=== PATIENT | female | born 1960 | race Caucasian/White ===

== ENCOUNTER 2018-08-19 10:41 | Inpatient (IN) | payer OTHER ==
--- NOTE | 2018-08-19 11:01 | PDOC ---
ED Treatment Course - LABORATORY CBC & Chemistry Diagram: 08/20/18 06:00 08/20/18 06:42 Medical Decision Making - Medical Decision Making 08/19/18 11:37 58 yo F not followed by a PMD Presenting with epigastric pain Pt seen by Midlevel Provider under my direct supervision Pt interviewed and examined Ancillary studies reviewed EKG: ST rate of 118 bpm, axis nml, intervals nml, no st elevations or depressions LABS: Laboratory Tests 08/19/18 11:30 Sodium 141 Potassium 5.9 H Chloride 108 H Carbon Dioxide 24 Anion Gap 8 BUN 13 Creatinine 0.6 Random Glucose 319 H* Total Bilirubin 1.5 H AST 585 H ALT 394 H Alkaline Phosphatase 144 H Creatine Kinase 58 Troponin I < 0.02 Lipase > 82265 H Acetone, Qual Negative L I agree with plan as outlined by Midlevel Provider *DC/Admit/Observation/Transfer Diagnosis at time of Disposition: Pancreatitis - Discharge Dispostion Condition at time of disposition: Guarded - Referrals - Patient Instructions - Post Discharge Activity
[2018-08-19] MEDS ORDERED: FAMOTIDINE 20 MG/50 ML IVPB 20 MG/50 ML MG IVPB ONE ×2 (11:03→11:43)
[2018-08-19] MEDS ORDERED: ONDANSETRON 4 MG/2 ML VIAL IVPUSH ONE (11:03)
--- NOTE | 2018-08-19 11:09 | PDOC ---
History of Present Illness - General Stated Complaint: WEAKNESS Time Seen by Provider: 08/19/18 10:57 History Source: Patient, Family - History of Present Illness Timing/Duration: reports: other (this am) Past History - Past Medical History Allergies/Adverse Reactions: Allergies Allergy/AdvReac Type Severity Reaction Status Date / Time No Known Allergies Allergy Verified 08/19/18 11:08 Home Medications: Ambulatory Orders NK [No Known Home Medication] 08/19/18 Review of Systems - Review of Systems Constitutional: Yes: Weakness. No: Chills, Fever Respiratory: Yes: Shortness of Breath. No: Cough Cardiac (ROS): No: Chest Pain ABD/GI: Yes: Nausea. No: Blood Streaked Bowels, Constipated, Diarrhea, Rectal Bleeding : No: Dysuria, Flank Pain, Hematuria *Physical Exam - Physical Exam Comments: 08/19/18 11:08 pt appears pale and diaphoretic General Appearance: Yes: Appropriately Dressed, Moderate Distress HEENT: positive: Normal Voice Neck: positive: Supple Respiratory/Chest: positive: Lungs Clear, Normal Breath Sounds. negative: Respiratory Distress Cardiovascular: positive: Regular Rate, S1, S2 Gastrointestinal/Abdominal: positive: Tender (sig ttp to epigastrium, NT to RUQ) , Soft Musculoskeletal: negative: CVA Tenderness Extremity: negative: Pedal Edema Integumentary: positive: Dry, Warm Neurologic: positive: Fully Oriented, Alert, Normal Mood/Affect ED Treatment Course - LABORATORY CBC & Chemistry Diagram: 08/19/18 11:30 08/19/18 11:30 - RADIOLOGY Radiology Studies Ordered: Category Date Time Status CHEST X-RAY PORTABLE* [RAD] Stat Radiology 08/19/18 11:03 Ordered Medical Decision Making - Medical Decision Making 08/19/18 11:04 58-year-old female, denies any past medical history and not taking any medications, but does admit she has not been to the doctor in many years, here with epigastric pain with nausea, vomiting that started this morning. Patient has had similar symptoms in the past, usually after eating spicy food and thinks she might have gastritis but never had to come to the ER for symptoms before. No change in bowel movements, melena, bright red blood per rectum, fever or chills. Reports maybe some shortness of breath but no chest pain. Per EMS, patient was diaphoretic and pale at scene with a blood sugar in the 300s w/ unremarkable EKG. Has since given patient 4 of cris with a liter of fluids running at this time. See exam Gastritis vs ACS, less likely PE or dissection -EKG -CXR -labs -trial of GI cocktail 08/19/18 13:11 LFTs significantly elevated including lipase of >30K!. Denies ETOH use. K of 5.9 w/ nl cr. EKG unremarkable. CBC pending. Concern for possible pancreatitis vs majo/cholangitis. IVF in progress. Pt receiving 2nd liter at this time and currently in US, pending CT as well 15:00 Ultrasound read as fatty liver versus hepatocellular disease. Gallstones seen without evidence of acute majo, borderline dilatation of the common bile duct of 6 mm. Strongly suspect pancreatitis at this time. CT pending. On 3rd liter of IVF now. No indication for abx at this time 08/19/18 18:08 Per radiology, CT demonstrates pancreatic edema with trace peripancreatic fluid consistent with acute pancreatitis. No evidence of pancreatic necrosis. Again , there is borderline CBD dilatation to 0.6-0.7 cm w/ trace pericholecystic fluid. Will c/w roundhouse firer/fireman for possible bed on unit given Lauren's score of 4. Pt most likely need GI consult while in-house. On reassessment, patient reports feeling significantly better, pain controlled at present. Currently NPO. 08/19/18 18:24 Case d/w Dr Escobar who agrees w/ ICU admit. Case d/w roundhouse firer/fireman who states she will discuss w/ attg to decide dispo 08/19/18 19:00 Pt signed out to [facility] at this time *DC/Admit/Observation/Transfer Diagnosis at time of Disposition: Pancreatitis Qualifiers: Chronicity: acute Pancreatitis type: unspecified pancreatitis type Acute pancreatitis complication: unspecified Qualified Code(s): K85.90 - Acute pancreatitis without necrosis or infection, unspecified - Discharge Dispostion Condition at time of disposition: Guarded Decision to Admit order: Yes - Referrals - Patient Instructions - Post Discharge Activity
[2018-08-19 11:10] VITALS: BMI 26.9
[2018-08-19] MEDS ORDERED: ONDANSETRON 4 MG/2 ML VIAL ONE (11:16)
[2018-08-19 11:46] LABS: BASO % 0.1 % (0-2.0); EOS % 0.2 % (0-4.5); HEMATOCRIT 42.6 % (32.4-45.2); MCH 29.3 pg (25.7-33.7); MCHC 32.9 g/dl (32.0-36.0); MEAN CELL VOLUME 89.1 fl (80-96); MONO % 5.6 % (3.8-10.2); NEUT % 86.1 % (42.8-82.8); PLATELET COUNT 266 K/MM3 (134-434); RBC 4.78 M/mm3 (3.60-5.2); RDW 13.2 % (11.6-15.6); WHITE BLOOD COUNT 11.9 K/mm3 (4.0-10.0)
[2018-08-19 11:52] LABS: URINE APPEARANCE CLEAR; URINE BILIRUBIN NEGATIVE (<2.0 mg/dL); URINE COLOR LTYELLOW; URINE GLUCOSE (UA) 3+ (NEGATIVE); URINE KETONE 1+ (NEGATIVE); URINE LEUK ESTERASE NEGATIVE (NEGATIVE); URINE NITRITE NEGATIVE (NEGATIVE); URINE PROTEIN NEGATIVE (NEGATIVE); URINE UROBILINOGEN NEGATIVE mg/dL (0.2-1.0)
[2018-08-19] MEDS ORDERED: SODIUM CHLORIDE 1,000 ML IV STA ×3 (12:08→15:56)
[2018-08-19 12:26] LABS: ALBUMIN 3.4 g/dl (3.4-5.0); ALK PHOS 144 U/L (45-117); ANION GAP 8 MMOL/L (8-16); BILIRUBIN,TOTAL 1.5 mg/dL (0.2-1); BLOOD UREA NITROGEN 13 mg/dL (7-18); CALCIUM 9.4 mg/dL (8.5-10.1); CHLORIDE 108 mmol/L (98-107); CO2 24 mmol/L (21-32); CREATININE 0.6 mg/dL (0.55-1.3); GLUCOSE,RANDOM 319 mg/dL (74-106); LIPASE > 30000 U/L (73-393); POTASSIUM 5.9 mmol/L (3.5-5.1); SGOT/AST 585 U/L (15-37); SGPT/ALT 394 U/L (13-61); SODIUM 141 mmol/L (136-145); TOT PROT 7.5 g/dl (6.4-8.2)
[2018-08-19 12:36] LABS: ACETONE SERUM NEGATIVE (NEGATIVE)
[2018-08-19] MEDS ORDERED: METOCLOPRAMIDE HCL INJECTION 10 MG/2 ML VIAL IVPB ONE (12:59)
[2018-08-19] MEDS ORDERED: METOCLOPRAMIDE HCL INJECTION 10 MG/2 ML VIAL ONE (13:00)
--- NOTE | 2018-08-19 15:16 | EKG ---
Test Reason : Blood Pressure : / mmHG Vent. Rate : 118 BPM Atrial Rate : 119 BPM P-R Int : 000 ms QRS Dur : 080 ms QT Int : 334 ms P-R-T Axes : 000 081 048 degrees QTc Int : 468 ms POOR DATA QUALITY, INTERPRETATION MAY BE ADVERSELY AFFECTED ACCELERATED JUNCTIONAL RHYTHM NONSPECIFIC ST ABNORMALITY ABNORMAL ECG NO PREVIOUS ECGS AVAILABLE Confirmed by STANISLAW SMITH MD ([id number]) on 08/19/2018 3:16:09 PM Referred By: Confirmed By:STANISLAW SMITH MD
[2018-08-19 15:45] LABS: LDH 555 U/L (84-246)
[2018-08-19] MEDS ORDERED: HYDROmorphone HCL CARPU-JECT 2 MG/1 ML DISP.SYRIN IVPB ONE (16:07)
[2018-08-19] MEDS ORDERED: HYDROmorphone HCl 2 MG/ML VIAL ONE (16:53)
[2018-08-19] MEDS ORDERED: HYDROmorphone HCL CARPU-JECT 2 MG/1 ML DISP.SYRIN IVPUSH ONE (16:56)
[2018-08-19] MEDS ORDERED: LACTATED RINGERS SOLUTION 1000 ML INFUS.BAG IV ONE (20:00)
--- NOTE | 2018-08-19 20:03 | PDOC ---
*Physical Exam - Vital Signs Last Vital Signs Temp Pulse Resp BP Pulse Ox 116 H 19 136/87 100 08/19/18 19:01 08/19/18 19:01 08/19/18 19:01 08/19/18 19:31 ED Treatment Course - LABORATORY CBC & Chemistry Diagram: 08/19/18 11:30 08/19/18 11:30 - ADDITIONAL ORDERS Additional order review: Laboratory Results 08/19/18 08/19/18 08/19/18 13:07 11:30 11:30 Sodium 141 Potassium 5.9 H Chloride 108 H Carbon Dioxide 24 Anion Gap 8 BUN 13 Creatinine 0.6 Creat Clearance w eGFR > 60 Random Glucose 319 H* Calcium 9.4 Total Bilirubin 1.5 H AST 585 H ALT 394 H Alkaline Phosphatase 144 H LD Total Cancelled 555 H Creatine Kinase 58 Troponin I < 0.02 Total Protein 7.5 Albumin 3.4 Lipase > 52155 H Urine Color Ltyellow Urine Appearance Clear Urine pH 7.0 Ur Specific [place] 1.013 Urine Protein Negative Urine Glucose (UA) 3+ H Urine Ketones 1+ H Urine Blood Negative Urine Nitrite Negative Urine Bilirubin Negative Urine Urobilinogen Negative Ur Leukocyte Esterase Negative Acetone, Qual Negative L 08/19/18 11:30 RBC 4.78 MCV 89.1 MCHC 32.9 RDW 13.2 MPV 8.0 Neutrophils % 86.1 H Lymphocytes % 8.0 Monocytes % 5.6 Eosinophils % 0.2 Basophils % 0.1 - Medications Given in the ED: ED Medications Discontinued Medications Generic Name Dose Route Start Last Admin Trade Name Freq PRN Reason Stop Dose Admin Hydromorphone HCl 2 mg 08/19/18 16:07 08/19/18 16:59 Dilaudid Injection - IVPB 08/19/18 16:08 Not Given ONCE ONE Hydromorphone HCl 2 mg 08/19/18 16:56 08/19/18 16:58 Dilaudid Injection - IVPUSH 08/19/18 16:57 2 mg ONCE ONE Administration Famotidine/Sodium Chloride 20 mg in 50 mls @ 100 mls/hr 08/19/18 11:03 11:51 Pepcid 20 Mg Premixed Ivpb - IVPB 08/19/18 11:32 100 mls/hr ONCE ONE Administration Sodium Chloride 1,000 mls @ 1,000 mls/hr 08/19/18 12:08 08/19/18 12:21 Normal Saline - IV 08/19/18 13:07 1,000 mls/hr ASDIR STA Administration Sodium Chloride 1,000 mls @ 1,000 mls/hr 08/19/18 13:10 08/19/18 14:38 Normal Saline - IV 08/19/18 14:09 1,000 mls/hr ASDIR STA Administration Sodium Chloride 1,000 mls @ 1,000 mls/hr 08/19/18 15:56 08/19/18 16:05 Normal Saline - IV 08/19/18 16:55 1,000 mls/hr ASDIR STA Administration Metoclopramide HCl 10 mg 08/19/18 12:59 08/19/18 13:05 Reglan Injection - IVPB 08/19/18 13:00 10 mg ONCE ONE Administration Ondansetron HCl 4 mg 08/19/18 11:03 08/19/18 11:51 Zofran Injection IVPUSH 08/19/18 11:04 4 mg ONCE ONE Administration Medical Decision Making - Medical Decision Making 08/19/18 19:58 i spoke to ICU resident Myriam. recommends repeat labs and Lactated ringer IVF. if worsening symptoms/ hemopdynamically unstable. likely need ICU admission. I spoke to Dr. torre. Dr. Escobar is aware of plan. *DC/Admit/Observation/Transfer Diagnosis at time of Disposition: Pancreatitis Qualifiers: Chronicity: acute Pancreatitis type: unspecified pancreatitis type Acute pancreatitis complication: unspecified Qualified Code(s): K85.90 - Acute pancreatitis without necrosis or infection, unspecified - Discharge Dispostion Condition at time of disposition: Guarded Decision to Admit order: Yes - Referrals - Patient Instructions - Post Discharge Activity
--- NOTE | 2018-08-19 20:41 | HP ---
Admitting History and Physical - Primary Care Physician PCP: Zoila Escobar - Admission History of Present Illness: 58-year-old female, denies any past medical history and not taking any medications, but does admit she has not been to the doctor in many years, here with epigastric pain with nausea, vomiting that started this morning. Patient has had similar symptoms in the past, usually after eating spicy food and thinks she might have gastritis but never had to come to the ER for symptoms before. No change in bowel movements, melena, bright red blood per rectum, fever or chills. Reports maybe some shortness of breath but no chest pain. - Smoking History Smoking history: Never smoked Home Medications - Allergies Allergies/Adverse Reactions: Allergies Allergy/AdvReac Type Severity Reaction Status Date / Time No Known Allergies Allergy Verified 08/19/18 11:08 - Home Medications Home Medications: Ambulatory Orders NK [No Known Home Medication] 08/19/18 Physical Examination Vital Signs: Vital Signs Temperature Pulse Rate 116 H 08/19/18 19:01 Respiratory Rate 19 08/19/18 19:01 Blood Pressure 136/87 08/19/18 19:01 O2 Sat by Pulse Oximetry (%) 100 08/19/18 19:31 Constitutional: Yes: No Distress HENT: Yes: Atraumatic Neck: Yes: Supple Cardiovascular: Yes: Regular Rate and Rhythm Respiratory: Yes: CTA Bilaterally Gastrointestinal: Yes: Normal Bowel Sounds Extremities: Yes: WNL Edema: No Neurological: Yes: Alert, Oriented Labs: CBC, BMP 08/19/18 11:30 08/19/18 11:30 Problem List - Problems (1) Pancreatitis Assessment/Plan: npo, ivf,prn pain meds gi consult Code(s): K85.90 - ACUTE PANCREATITIS WITHOUT NECROSIS OR INFECTION, UNSP Qualifiers: Chronicity: acute Pancreatitis type: unspecified pancreatitis type Acute pancreatitis complication: unspecified Qualified Code(s): K85.90 - Acute pancreatitis without necrosis or infection, unspecified Assessment/Plan Laboratory Tests 08/19/18 08/19/18 08/19/18 11:30 11:30 11:30 WBC 11.9 H RBC 4.78 Hgb 14.0 Hct 42.6 MCV 89.1 MCH 29.3 MCHC 32.9 RDW 13.2 Plt Count 266 MPV 8.0 Absolute Neuts (auto) 10.3 H Neutrophils % 86.1 H Lymphocytes % 8.0 Monocytes % 5.6 Eosinophils % 0.2 Basophils % 0.1 Nucleated RBC % 0 Sodium 141 Potassium 5.9 H Chloride 108 H Carbon Dioxide 24 Anion Gap 8 BUN 13 Creatinine 0.6 Creat Clearance w eGFR > 60 Random Glucose 319 H* Calcium 9.4 Total Bilirubin 1.5 H AST 585 H ALT 394 H Alkaline Phosphatase 144 H LD Total 555 H Creatine Kinase 58 Troponin I < 0.02 Total Protein 7.5 Albumin 3.4 Lipase > 16070 H Urine Color Ltyellow Urine Appearance Clear Urine pH 7.0 Ur Specific [place] 1.013 Urine Protein Negative Urine Glucose (UA) 3+ H Urine Ketones 1+ H Urine Blood Negative Urine Nitrite Negative Urine Bilirubin Negative Urine Urobilinogen Negative Ur Leukocyte Esterase Negative Acetone, Qual Negative L 08/19/18 13:07 WBC RBC Hgb Hct MCV MCH MCHC RDW Plt Count MPV Absolute Neuts (auto) Neutrophils % Lymphocytes % Monocytes % Eosinophils % Basophils % Nucleated RBC % Sodium Potassium Chloride Carbon Dioxide Anion Gap BUN Creatinine Creat Clearance w eGFR Random Glucose Calcium Total Bilirubin AST ALT Alkaline Phosphatase LD Total Cancelled Creatine Kinase Troponin I Total Protein Albumin Lipase Urine Color Urine Appearance Urine pH Ur Specific [place] Urine Protein Urine Glucose (UA) Urine Ketones Urine Blood Urine Nitrite Urine Bilirubin Urine Urobilinogen Ur Leukocyte Esterase Acetone, Qual Active Medications Generic Name Dose Route Start Last Admin Trade Name Freq PRN Reason Stop Dose Admin Sodium Chloride 1,000 mls @ 100 mls/hr 08/19/18 20:45 Normal Saline - IV ASDIR BENSON Morphine Sulfate 2 mg 08/19/18 20:45 Morphine Sulfate IVPUSH Q4H PRN PAIN LEVEL 4 - 6
[2018-08-19] MEDS ORDERED: morphine SULFATE 4 MG/ML VIAL IVPUSH PRN (20:45)
[2018-08-19] MEDS: SODIUM CHLORIDE 1,000 ML IV SCH (20:49)
--- NOTE | 2018-08-19 21:26 | CONSULT ---
Consultation: REQUESTING PROVIDER: CONSULT REQUEST: We have been asked to medically evaluate this patient for ( specify). HISTORY OF PRESENT ILLNESS: This is a 58 yo F with no known PMH, who is not followed by a PMD, who presentsed with epigastric pain, found to have acute pancreatis. She denies prior episodes of pancreatitis but does report occasional epigastric burnign after heavy or spicy meals. She denies alcohol consumption or smoking. She denies sob, cough, dizziness, cp, n/v, diarrhea, dysuria. She received 3 L NS and dilaudid and currently feels better, denies abd pain. REVIEW OF SYSTEMS: CONSTITUTIONAL: Absent: fever, chills, malaise, weight change HEENT: Absent: rhinorrhea, nasal congestion CARDIOVASCULAR: Absent: chest pain, syncope, palpitations, lightheadedness, peripheral edema RESPIRATORY: Absent: cough, shortness of breath, dyspnea with exertion, orthopnea, wheezing, stridor, hemoptysis GASTROINTESTINAL: Absent: abdominal pain, abdominal distension, nausea, vomiting, diarrhea, constipation, melena, hematochezia GENITOURINARY: Absent: dysuria MUSCULOSKELETAL: Absent: back pain, neck pain SKIN: Absent: rash, itching, pallor HEMATOLOGIC/IMMUNOLOGIC: Absent: easy bleeding, easy bruising ENDOCRINE: Absent: unexplained weight gain, unexplained weight loss NEUROLOGIC: Absent: headache, focal weakness or paresthesias PSYCHIATRIC: Absent: anxiety, depression PHYSICAL EXAMINATION Vital Signs - 24 hr 08/19/18 08/19/18 08/19/18 11:03 17:03 19:01 Temperature Pulse Rate 92 H Pulse Rate [ 115 H 116 H Right] Respiratory 18 17 19 Rate Blood Pressure 175/94 H Blood Pressure 159/85 136/87 [Right] O2 Sat by Pulse 100 98 99 Oximetry (%) 08/19/18 08/19/18 19:05 19:31 Temperature 98.6 F Pulse Rate Pulse Rate [ 98 H Right] Respiratory 18 Rate Blood Pressure Blood Pressure 143/92 [Right] O2 Sat by Pulse 98 100 Oximetry (%) GENERAL: Awake, alert, and fully oriented, in no acute distress. HEAD: Normal with no signs of trauma. EYES: Pupils equal, round and reactive to light, extraocular movements intact, sclera anicteric, conjunctiva clear. No lid lag. EARS, NOSE, THROAT: Moist mucous membranes. NECK: supple without JVD LUNGS: Breath sounds equal, clear to auscultation bilaterally. No wheezes, and no crackles. No accessory muscle use. HEART: Regular rate and rhythm, normal S1 and S2 ABDOMEN: Soft, mildly tender epigastric region, not distended, normoactive bowel sounds, no guarding, no rebound, no masses. MUSCULOSKELETAL: No CVA tenderness. UPPER EXTREMITIES: 2+ pulses, warm, well-perfused. No cyanosis. No clubbing. Cap refill <2 seconds. No peripheral edema. LOWER EXTREMITIES: 2+ pulses, warm, well-perfused. No calf tenderness. No peripheral edema. NEUROLOGICAL: Cranial nerves II-XII grossly intact. Normal speech. PSYCHIATRIC: Cooperative. Good eye contact. Appropriate mood and affect. SKIN: Warm, dry, normal turgor Laboratory Results - last 24 hr 08/19/18 08/19/18 08/19/18 11:30 11:30 11:30 WBC 11.9 H RBC 4.78 Hgb 14.0 Hct 42.6 MCV 89.1 MCH 29.3 MCHC 32.9 RDW 13.2 Plt Count 266 MPV 8.0 Absolute Neuts (auto) 10.3 H Neutrophils % 86.1 H Lymphocytes % 8.0 Monocytes % 5.6 Eosinophils % 0.2 Basophils % 0.1 Nucleated RBC % 0 Sodium 141 Potassium 5.9 H Chloride 108 H Carbon Dioxide 24 Anion Gap 8 BUN 13 Creatinine 0.6 Creat Clearance w eGFR > 60 Random Glucose 319 H* Calcium 9.4 Total Bilirubin 1.5 H AST 585 H ALT 394 H Alkaline Phosphatase 144 H LD Total 555 H Creatine Kinase 58 Troponin I < 0.02 Total Protein 7.5 Albumin 3.4 Lipase > 07328 H Urine Color Ltyellow Urine Appearance Clear Urine pH 7.0 Ur Specific [place] 1.013 Urine Protein Negative Urine Glucose (UA) 3+ H Urine Ketones 1+ H Urine Blood Negative Urine Nitrite Negative Urine Bilirubin Negative Urine Urobilinogen Negative Ur Leukocyte Esterase Negative Acetone, Qual Negative L 08/19/18 13:07 WBC RBC Hgb Hct MCV MCH MCHC RDW Plt Count MPV Absolute Neuts (auto) Neutrophils % Lymphocytes % Monocytes % Eosinophils % Basophils % Nucleated RBC % Sodium Potassium Chloride Carbon Dioxide Anion Gap BUN Creatinine Creat Clearance w eGFR Random Glucose Calcium Total Bilirubin AST ALT Alkaline Phosphatase LD Total Cancelled Creatine Kinase Troponin I Total Protein Albumin Lipase Urine Color Urine Appearance Urine pH Ur Specific [place] Urine Protein Urine Glucose (UA) Urine Ketones Urine Blood Urine Nitrite Urine Bilirubin Urine Urobilinogen Ur Leukocyte Esterase Acetone, Qual Active Medications Generic Name Dose Route Start Last Admin Trade Name Nicholas PRN Reason Stop Dose Admin Sodium Chloride 1,000 mls @ 100 mls/hr 08/19/18 20:45 08/19/18 20:49 Normal Saline - IV 100 mls/hr ASDIR BENSON Administration Morphine Sulfate 2 mg 08/19/18 20:45 Morphine Sulfate IVPUSH Q4H PRN PAIN LEVEL 4 - 6 ASSESSMENT/PLAN: This is a 58 yo F with no known PMH, who is not followed by a PMD, who presentsed with epigastric pain, found to have acute pancreatis. Acute mild pancreatitis, likley gall stone induced Transaminitis, hyperglycemia, pancreatitis related Clolelithiasis w/o coholecystitis -Lauren =4, howeve,r Darrius score for organ damage is 0, there is no necrosis on imaging, no hypotension, tachypnea, tachycardia or any other criteria that meets ICU admission. -patient received 3 L NS, should continue fluid resuscitation but with LR since it has clear mortality benefit over NS -NPO -abd imaging appreciated: mildly dilated CBD; needs GI eval for MRCP and surgery eval for cholecystectomy during this admission -f/u repeat cmp, triglycerides, lactic acid. -monitor vital signs q4h, continuous pulse ox, cardiac monitoring. -patient requested A1c in the morning. Dispo: does not meed ICU criteria, can be monitored in telemetry. Please contact ICU if condition worsens and warrants reevaluation Problem List - Problems (1) Acute pancreatitis due to calculus of common bile duct Code(s): K85.10 - BILIARY ACUTE PANCREATITIS WITHOUT NECROSIS OR INFECTION (2) Cholelithiasis Code(s): K80.20 - CALCULUS OF GALLBLADDER W/O CHOLECYSTITIS W/O OBSTRUCTION (3) Pancreatitis Code(s): K85.90 - ACUTE PANCREATITIS WITHOUT NECROSIS OR INFECTION, UNSP Qualifiers: Chronicity: acute Pancreatitis type: unspecified pancreatitis type Acute pancreatitis complication: unspecified Qualified Code(s): K85.90 - Acute pancreatitis without necrosis or infection, unspecified Visit type - Emergency Visit Emergency Visit: Yes ED Registration Date: 08/19/18 Care time: The patient presented to the Emergency Department on the above date and was hospitalized for further evaluation of their emergent condition. - New Patient This patient is new to me today: Yes Date on this admission: 08/19/18 - Critical Care Critical Care patient: No
[2018-08-20 01:39] LABS: BASO % 0.4 % (0-2.0); EOS % 0.5 % (0-4.5); LYMPH % 19.3 % (8-40); MCH 29.7 pg (25.7-33.7); MCHC 33.3 g/dl (32.0-36.0); MEAN CELL VOLUME 89.2 fl (80-96); MEAN PLT VOLUME 8.1 fl (7.5-11.1); MONO % 5.8 % (3.8-10.2); PLATELET COUNT 228 K/MM3 (134-434); RBC 4.37 M/mm3 (3.60-5.2); RDW 13.4 % (11.6-15.6); WHITE BLOOD COUNT 7.7 K/mm3 (4.0-10.0)
[2018-08-20 02:06] LABS: ALBUMIN 3.1 g/dl (3.4-5.0); ALK PHOS 126 U/L (45-117); ANION GAP 7 MMOL/L (8-16); BILIRUBIN,TOTAL 0.4 mg/dL (0.2-1); BLOOD UREA NITROGEN 9 mg/dL (7-18); CALCIUM 8.1 mg/dL (8.5-10.1); CHLORIDE 106 mmol/L (98-107); CO2 27 mmol/L (21-32); CREATININE 0.5 mg/dL (0.55-1.3); GLUCOSE,RANDOM 169 mg/dL (74-106); POTASSIUM 3.8 mmol/L (3.5-5.1); SGOT/AST 222 U/L (15-37); SGPT/ALT 293 U/L (13-61); SODIUM 139 mmol/L (136-145); TOT PROT 6.9 g/dl (6.4-8.2)
[2018-08-20] MEDS ORDERED: MORPHINE SULFATE 2 MG/ML VIAL ONE (04:15)
[2018-08-20 07:11] LABS: BASO % 0.3 % (0-2.0); EOS % 0.6 % (0-4.5); HEMATOCRIT 35.2 % (32.4-45.2); HEMOGLOBIN 11.5 GM/dL (10.7-15.3); LYMPH % 17.4 % (8-40); MCHC 32.7 g/dl (32.0-36.0); MEAN CELL VOLUME 88.8 fl (80-96); MEAN PLT VOLUME 7.9 fl (7.5-11.1); MONO % 5.5 % (3.8-10.2); NEUT % 76.2 % (42.8-82.8); PLATELET COUNT 228 K/MM3 (134-434); RBC 3.96 M/mm3 (3.60-5.2); WHITE BLOOD COUNT 7.9 K/mm3 (4.0-10.0)
[2018-08-20 08:18] LABS: ALBUMIN 2.6 g/dl (3.4-5.0); ALK PHOS 103 U/L (45-117); ANION GAP 8 MMOL/L (8-16); BILIRUBIN,TOTAL 0.4 mg/dL (0.2-1); BLOOD UREA NITROGEN 8 mg/dL (7-18); CALCIUM 7.6 mg/dL (8.5-10.1); CHLORIDE 107 mmol/L (98-107); CO2 25 mmol/L (21-32); CREATININE 0.4 mg/dL (0.55-1.3); GLUCOSE,RANDOM 162 mg/dL (74-106); POTASSIUM 3.7 mmol/L (3.5-5.1); SGOT/AST 133 U/L (15-37); SGPT/ALT 213 U/L (13-61); SODIUM 140 mmol/L (136-145); TOT PROT 5.8 g/dl (6.4-8.2)
[2018-08-20] MEDS ORDERED: morphine SULFATE 4 MG/ML VIAL ONE (14:04)
[2018-08-20] MEDS: MORPHINE SULFATE 2 MG/ML VIAL IVPUSH PRN (14:09)
--- NOTE | 2018-08-20 17:21 | PN ---
Progress Note, Physician History of Present Illness: feeling better - Current Medication List Current Medications: Active Medications Sodium Chloride (Normal Saline -) 1,000 mls @ 100 mls/hr IV ASDIR BENSON Last Admin: 08/19/18 20:49 Dose: 100 mls/hr Morphine Sulfate (Morphine Sulfate) 2 mg IVPUSH Q4H PRN PRN Reason: PAIN LEVEL 4 - 6 Last Admin: 08/20/18 14:09 Dose: 2 mg - Objective Vital Signs: Vital Signs Temperature 98.2 F 08/20/18 13:59 Pulse Rate 102 H 08/20/18 08:38 Respiratory Rate 104 H 08/20/18 13:59 Blood Pressure 140/79 08/20/18 13:59 O2 Sat by Pulse Oximetry (%) 94 L 08/20/18 13:59 Constitutional: Yes: No Distress HENT: Yes: Atraumatic Neck: Yes: Supple Cardiovascular: Yes: Regular Rate and Rhythm Respiratory: Yes: CTA Bilaterally Gastrointestinal: Yes: Normal Bowel Sounds, Tenderness, Epigastrium Extremities: Yes: WNL Edema: No Peripheral Pulses WNL: Yes Neurological: Yes: Alert, Oriented Labs: CBC, BMP 08/20/18 06:00 08/20/18 06:42 Problem List - Problems (1) Pancreatitis Assessment/Plan: npo, ivf,prn pain meds gi consult Code(s): K85.90 - ACUTE PANCREATITIS WITHOUT NECROSIS OR INFECTION, UNSP Qualifiers: Chronicity: acute Pancreatitis type: unspecified pancreatitis type Acute pancreatitis complication: unspecified Qualified Code(s): K85.90 - Acute pancreatitis without necrosis or infection, unspecified (2) Acute pancreatitis due to calculus of common bile duct Code(s): K85.10 - BILIARY ACUTE PANCREATITIS WITHOUT NECROSIS OR INFECTION (3) Cholelithiasis Code(s): K80.20 - CALCULUS OF GALLBLADDER W/O CHOLECYSTITIS W/O OBSTRUCTION (4) Gallstone pancreatitis Code(s): K85.10 - BILIARY ACUTE PANCREATITIS WITHOUT NECROSIS OR INFECTION
[2018-08-20] MEDS ORDERED: FLU VACCINE QUAD 60 MCG/0.5 ML (MDV 18-19) IM ONE (18:00)
[2018-08-20] MEDS: SODIUM CHLORIDE 1,000 ML IV SCH (21:48)
[2018-08-21] MEDS: SODIUM CHLORIDE 1,000 ML IV SCH ×3 (02:00→20:59)
[2018-08-21] MEDS: MORPHINE SULFATE 2 MG/ML VIAL IVPUSH PRN ×2 (05:54→12:31)
[2018-08-21 07:16] LABS: ALBUMIN 2.5 g/dl (3.4-5.0); ALK PHOS 94 U/L (45-117); AMYLASE 259 U/L (25-115); ANION GAP 11 MMOL/L (8-16); BILIRUBIN,TOTAL 0.5 mg/dL (0.2-1); BLOOD UREA NITROGEN 6 mg/dL (7-18); CHLORIDE 108 mmol/L (98-107); CO2 20 mmol/L (21-32); CREATININE 0.2 mg/dL (0.55-1.3); GLUCOSE,RANDOM 88 mg/dL (74-106); LIPASE 1497 U/L (73-393); POTASSIUM 3.5 mmol/L (3.5-5.1); SGOT/AST 50 U/L (15-37); SGPT/ALT 132 U/L (13-61); SODIUM 140 mmol/L (136-145); TOT PROT 5.6 g/dl (6.4-8.2)
--- NOTE | 2018-08-21 09:51 | CON.GI ---
Consult Consult Specialty:: GI: Dr. Spencer for Dr. Garcia Referred by:: Dr. Escobar Reason for Consultation:: Pancreatitis - History of Present Illness Chief Complaint: abdominal pain History of Present Illness: 58F admitted 08/19 for evaluation of abdominal pain. That morning she was awoken by severe upper abdominal pain prompting her evaluation. The evening before she had eaten pepperjack cheese. She denies similar episodes in the past. In the ER she was noted to be tachycardic and hypertensive with WBC 11.9 , Lipase 30,000 with 4 positive moreno's criteria on admission. Abdominal US revealed cholelithiasis with 6-7mm CBD. CT scan revealed a non specific 1.4cm focus in the liver and changes consistent with acute non-necrotizing pancreatitis. IOt is unclear if she received fluid boluses in the ED and she has been maintained on 100CC normal saline. Pain improved but persists. She has never had an upper endoscopy or colonoscopy. 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 Place of : [facility] History of Recent Travel: No Home Medications - Allergies Allergies/Adverse Reactions: Allergies Allergy/AdvReac Type Severity Reaction Status Date / Time No Known Allergies Allergy Verified 08/19/18 11:08 - Home Medications Home Medications: Ambulatory Orders NK [No Known Home Medication] 08/19/18 Family Disease History - Family Disease History Family Disease History: Other: Grandparent (Paternal GF w/ colon cancer), Father (Alive: DM/HTN/Dementia), Mother (: 71: [place]), Brother (1, healthy), Sister (2, healthy), Daughter (2, 1 w/ DM II) Review of Systems - Review of Systems Constitutional: denies: Chills, Fever, Unintentional Wgt. Loss Cardiovascular: denies: Chest Pain Respiratory: denies: SOB Gastrointestinal: reports: Abdominal Pain, Nausea Physical Exam-GI Vital Signs: Vital Signs Temperature 98.6 F 08/21/18 06:00 Pulse Rate 112 H 08/21/18 06:00 Respiratory Rate 18 08/21/18 06:00 Blood Pressure 138/77 08/21/18 06:00 O2 Sat by Pulse Oximetry (%) 98 08/20/18 21:00 Constitutional: Yes: Calm Eyes: No: Sclera Icterus Cardiovascular: Yes: Regular Rate and Rhythm. No: Murmur Gastrointestinal Inspection: No: Distention ...Auscultate: Yes: Normoactive Bowel Sounds ...Palpate: Yes: Tenderness (Moderate TTP in mid abdomen) ...Percussion: No: Tympanitic Edema: No (No LE edema) Neurological: Yes: Alert, Oriented Labs: CBC, BMP 08/20/18 06:00 08/21/18 05:30 Hepatic Panel Total Bilirubin 0.5 mg/dL (0.2-1) 08/21/18 05:30 AST 50 U/L (15-37) H 08/21/18 05:30 ALT 132 U/L (13-61) H 08/21/18 05:30 Alkaline Phosphatase 94 U/L (45-117) 08/21/18 05:30 Albumin 2.5 g/dl (3.4-5.0) L 08/21/18 05:30 Imaging - Results Cat Scan: Report Reviewed, Image Reviewed Ultrasound: Report Reviewed Problem List - Problems (1) Gallstone pancreatitis Assessment/Plan: Clinically improved by patient's description, however still with moderate tenderness to palpation on exam. LFT's improving as well, suggesting passage of CBD stone: Advised: Increasing Normal saline to 200cc per hour for 2 liters followed by 150cc/hr NPO Ordered MRCP to further evaluate biliary tract Surgical consult placed as Ms. Amaya should be evaluated for cholecystectomy prior to discharge AM labs ordered, Monitor CBC/CMP daily Code(s): K85.10 - BILIARY ACUTE PANCREATITIS WITHOUT NECROSIS OR INFECTION
[2018-08-21] MEDS ORDERED: SODIUM CHLORIDE 1,000 ML IV SCH (10:00)
[2018-08-21 10:25] LABS: BASO % 0.4 % (0-2.0); EOS % 0.9 % (0-4.5); HEMATOCRIT 35.3 % (32.4-45.2); HEMOGLOBIN 11.5 GM/dL (10.7-15.3); LYMPH % 11.7 % (8-40); MCH 29.1 pg (25.7-33.7); MCHC 32.7 g/dl (32.0-36.0); MEAN PLT VOLUME 8.1 fl (7.5-11.1); MONO % 5.4 % (3.8-10.2); NEUT % 81.6 % (42.8-82.8); PLATELET COUNT 230 K/MM3 (134-434); RBC 3.97 M/mm3 (3.60-5.2); RDW 13.2 % (11.6-15.6); WHITE BLOOD COUNT 8.8 K/mm3 (4.0-10.0)
[2018-08-21 12:04] LABS: ALBUMIN 2.9 g/dl (3.4-5.0); ALK PHOS 113 U/L (45-117); ANION GAP 12 MMOL/L (8-16); BILIRUBIN,TOTAL 0.6 mg/dL (0.2-1); BLOOD UREA NITROGEN 6 mg/dL (7-18); CALCIUM 8.5 mg/dL (8.5-10.1); CHLORIDE 106 mmol/L (98-107); CO2 21 mmol/L (21-32); CREATININE 0.3 mg/dL (0.55-1.3); GLUCOSE,RANDOM 81 mg/dL (74-106); POTASSIUM 3.9 mmol/L (3.5-5.1); SGOT/AST 51 U/L (15-37); SGPT/ALT 140 U/L (13-61); SODIUM 139 mmol/L (136-145); TOT PROT 6.7 g/dl (6.4-8.2)
--- NOTE | 2018-08-21 13:09 | CONSULT ---
- Consultation REQUESTING PROVIDER: Sven CONSULT REQUEST: We have been asked to surgically evaluate this patient for abdominal pain PCP:Zoila Escobar HISTORY OF PRESENT ILLNESS: 58 y/o female presents w/ n/v/abdominal pain and w/ u reveals gallstone pancreatitis; patient had # days of increasing epigastric/ RUQ pain after eating cheese; she may have had this in the past h/e there was no w/u; she has no other GI//[employer] c/o; she came to the ER for evaluation. PMHx: ?HTN? PSHx: none Home Medications Medication Instructions Recorded NK [No Known Home Medication] 08/19/18 Allergies Allergy/AdvReac Type Severity Reaction Status Date / Time No Known Allergies Allergy Verified 08/19/18 11:08 PHYSICAL EXAM: GENERAL: Awake, alert, and fully oriented, in no acute distress. HEAD: Normal with no signs of trauma. EYES:sclera anicteric, conjunctiva clear. NECK: Normal ROM, supple without lymphadenopathy, JVD, or masses. ABDOMEN: Soft, nontender in epigastrium and RUQ, not distended, normoactive bowel sounds, no guarding, no rebound, no masses. No organomegaly. No hernias MUSCULOSKELETAL: Normal ROM at all joints. No bony deformities or tenderness. No CVA tenderness. UPPER EXTREMITIES: 2+ pulses, warm, well-perfused. No cyanosis. Cap refill <2 seconds. No peripheral edema. LOWER EXTREMITIES: 2+ pulses, warm, well-perfused. No calf tenderness. No peripheral edema. NEUROLOGICAL: Normal speech, gait not observed. PSYCH: Cooperative. Good eye contact. Appropriate mood and affect. SKIN: Warm, dry, normal turgor, no rashes or lesions noted. Vital Signs Temperature 98.8 F 08/21/18 10:47 Pulse Rate 115 H 08/21/18 10:47 Respiratory Rate 20 08/21/18 10:47 Blood Pressure 150/83 08/21/18 10:47 O2 Sat by Pulse Oximetry (%) 98 08/21/18 09:00 Lab Results WBC 8.8 K/mm3 (4.0-10.0) 08/21/18 08:10 RBC 3.97 M/mm3 (3.60-5.2) 08/21/18 08:10 Hgb 11.5 GM/dL (10.7-15.3) 08/21/18 08:10 Hct 35.3 % (32.4-45.2) 08/21/18 08:10 MCV 89.0 fl (80-96) 08/21/18 08:10 MCHC 32.7 g/dl (32.0-36.0) 08/21/18 08:10 RDW 13.2 % (11.6-15.6) 08/21/18 08:10 Plt Count 230 K/MM3 (134-434) 08/21/18 08:10 Sodium 139 mmol/L (136-145) 08/21/18 11:00 Potassium 3.9 mmol/L (3.5-5.1) 08/21/18 11:00 Chloride 106 mmol/L (98-107) 08/21/18 11:00 Carbon Dioxide 21 mmol/L (21-32) 08/21/18 11:00 Anion Gap 12 MMOL/L (8-16) 08/21/18 11:00 BUN 6 mg/dL (7-18) L 08/21/18 11:00 Creatinine 0.3 mg/dL (0.55-1.3) L 08/21/18 11:00 Random Glucose 81 mg/dL (74-106) 08/21/18 11:00 Calcium 8.5 mg/dL (8.5-10.1) 08/21/18 11:00 w/u to date reviewed IMP: resolving gallstone pancreatitis PLAN: Check MRCP results; continue present tx.; trend LFT's and amylase and lipase; continue IVF; clear liquid diet as tolerated; for lap majo possible open 08/24/18; d/w the patient and her daughter Lorna; r/b/t/a's d/w them. Deo Lopez MD FACS
--- NOTE | 2018-08-21 15:57 | PN ---
Progress Note, Physician History of Present Illness: feeling better - Current Medication List Current Medications: Active Medications Sodium Chloride (Normal Saline -) 1,000 mls @ 200 mls/hr IV ASDIR BENSON Stop: 08/22/18 14:59 Last Admin: 08/21/18 12:30 Dose: 200 mls/hr Sodium Chloride (Normal Saline -) 1,000 mls @ 150 mls/hr IV ASDIR BENSON Morphine Sulfate (Morphine Sulfate) 2 mg IVPUSH Q4H PRN PRN Reason: PAIN LEVEL 4 - 6 Last Admin: 08/21/18 12:31 Dose: 2 mg - Objective Vital Signs: Vital Signs Temperature 98.9 F 08/21/18 14:00 Pulse Rate 106 H 08/21/18 14:00 Respiratory Rate 20 08/21/18 14:00 Blood Pressure 154/80 08/21/18 14:00 O2 Sat by Pulse Oximetry (%) 98 08/21/18 09:00 Constitutional: Yes: No Distress Eyes: Yes: Conjunctiva Clear HENT: Yes: Atraumatic Neck: Yes: Supple Cardiovascular: Yes: Regular Rate and Rhythm Respiratory: Yes: CTA Bilaterally Gastrointestinal: Yes: Normal Bowel Sounds, Tenderness, Epigastrium Extremities: Yes: WNL Edema: No Neurological: Yes: Alert, Oriented Labs: CBC, BMP 08/21/18 08:10 08/21/18 11:00 Problem List - Problems (1) Pancreatitis Assessment/Plan: npo, ivf,prn pain meds gi consult...reviewed Code(s): K85.90 - ACUTE PANCREATITIS WITHOUT NECROSIS OR INFECTION, UNSP Qualifiers: Chronicity: acute Pancreatitis type: unspecified pancreatitis type Acute pancreatitis complication: unspecified Qualified Code(s): K85.90 - Acute pancreatitis without necrosis or infection, unspecified (2) Acute pancreatitis due to calculus of common bile duct Assessment/Plan: surgery consult reviewed Code(s): K85.10 - BILIARY ACUTE PANCREATITIS WITHOUT NECROSIS OR INFECTION (3) Cholelithiasis Code(s): K80.20 - CALCULUS OF GALLBLADDER W/O CHOLECYSTITIS W/O OBSTRUCTION (4) Gallstone pancreatitis Code(s): K85.10 - BILIARY ACUTE PANCREATITIS WITHOUT NECROSIS OR INFECTION
[2018-08-21] MEDS ORDERED: morphine SULFATE 4 MG/ML VIAL IVPUSH PRN (22:06)
[2018-08-21] MEDS: ONDANSETRON 4 MG/2 ML VIAL IVPUSH PRN (22:29)
[2018-08-22] MEDS: SODIUM CHLORIDE 1,000 ML IV SCH ×3 (02:05→17:10)
[2018-08-22] MEDS: ONDANSETRON 4 MG/2 ML VIAL IVPUSH PRN (06:17)
--- NOTE | 2018-08-22 08:27 | PN ---
Progress Note, Physician Chief Complaint: Covering for Dr. Lemos Pt with abdominal pain - Current Medication List Current Medications: Active Medications Sodium Chloride (Normal Saline -) 1,000 mls @ 200 mls/hr IV ASDIR BENSON Stop: 08/22/18 14:59 Last Admin: 08/21/18 20:59 Dose: 200 mls/hr Sodium Chloride (Normal Saline -) 1,000 mls @ 150 mls/hr IV ASDIR BENSON Last Admin: 08/22/18 02:05 Dose: 150 mls/hr Morphine Sulfate (Morphine Sulfate) 2 mg IVPUSH Q4H PRN PRN Reason: PAIN LEVEL 4 - 6 Last Admin: 08/21/18 12:31 Dose: 2 mg Morphine Sulfate (Morphine Sulfate) 3 mg IVPUSH Q4H PRN PRN Reason: PAIN LEVEL 6-10 Ondansetron HCl (Zofran Injection) 4 mg IVPUSH Q4H PRN PRN Reason: NAUSEA AND/OR VOMITING Last Admin: 08/22/18 06:17 Dose: 4 mg - Objective Vital Signs: Vital Signs Temperature 98.2 F 08/22/18 06:00 Pulse Rate 103 H 08/22/18 06:00 Respiratory Rate 17 08/22/18 06:00 Blood Pressure 155/90 08/22/18 06:00 O2 Sat by Pulse Oximetry (%) 98 08/21/18 21:00 Constitutional: Yes: Well Nourished, No Distress Eyes: Yes: WNL HENT: Yes: WNL Neck: Yes: WNL Cardiovascular: Yes: WNL, Regular Rate and Rhythm Respiratory: Yes: WNL, Regular, CTA Bilaterally Gastrointestinal: Yes: WNL (tender to deep palpation in the epigastrium - no rebound or guarding), Normal Bowel Sounds Musculoskeletal: Yes: WNL Extremities: Yes: WNL Labs: CBC, BMP 08/21/18 08:10 Problem List - Problems (1) Gallstone pancreatitis Assessment/Plan: MRCP reviewed -- cholelithiasis / pancreatitis / acute cholecystitis REC: - clear liquid diet - IVf' s - pain management - cbc and chemistry daily - abx coverage - levaquin / flagyl - surgery evaluation noted - plan for cholecystectomy on Friday Code(s): K85.10 - BILIARY ACUTE PANCREATITIS WITHOUT NECROSIS OR INFECTION
[2018-08-22 08:45] LABS: ALBUMIN 2.5 g/dl (3.4-5.0); ALK PHOS 100 U/L (45-117); ANION GAP 13 MMOL/L (8-16); BILIRUBIN,DIRECT 0.1 mg/dL (0.0-0.2); BILIRUBIN,TOTAL 0.4 mg/dL (0.2-1); BLOOD UREA NITROGEN 5 mg/dL (7-18); CALCIUM 7.9 mg/dL (8.5-10.1); CHLORIDE 110 mmol/L (98-107); CO2 18 mmol/L (21-32); CREATININE 0.3 mg/dL (0.55-1.3); GLUCOSE,RANDOM 73 mg/dL (74-106); POTASSIUM 3.9 mmol/L (3.5-5.1); SGOT/AST 31 U/L (15-37); SGPT/ALT 94 U/L (13-61); SODIUM 141 mmol/L (136-145)
--- NOTE | 2018-08-22 16:35 | PN ---
Progress Note, Physician History of Present Illness: feeling better - Current Medication List Current Medications: Active Medications Sodium Chloride (Normal Saline -) 1,000 mls @ 150 mls/hr IV ASDIR BENSON Last Admin: 08/22/18 10:27 Dose: 150 mls/hr Morphine Sulfate (Morphine Sulfate) 2 mg IVPUSH Q4H PRN PRN Reason: PAIN LEVEL 4 - 6 Last Admin: 08/21/18 12:31 Dose: 2 mg Morphine Sulfate (Morphine Sulfate) 3 mg IVPUSH Q4H PRN PRN Reason: PAIN LEVEL 6-10 Ondansetron HCl (Zofran Injection) 4 mg IVPUSH Q4H PRN PRN Reason: NAUSEA AND/OR VOMITING Last Admin: 08/22/18 06:17 Dose: 4 mg - Objective Vital Signs: Vital Signs Temperature 98 F 08/22/18 09:25 Pulse Rate 104 H 08/22/18 09:25 Respiratory Rate 18 08/22/18 09:25 Blood Pressure 140/70 08/22/18 09:25 O2 Sat by Pulse Oximetry (%) 98 08/22/18 09:00 Constitutional: Yes: No Distress HENT: Yes: Atraumatic Neck: Yes: Supple Cardiovascular: Yes: Regular Rate and Rhythm Respiratory: Yes: CTA Bilaterally Gastrointestinal: Yes: Tenderness, Epigastrium (mild) Extremities: Yes: WNL Edema: No Peripheral Pulses WNL: Yes Neurological: Yes: Alert, Oriented Labs: CBC, BMP 08/21/18 08:10 08/22/18 06:20 Problem List - Problems (1) Pancreatitis Assessment/Plan: npo, ivf,prn pain meds will start her on abx per id Code(s): K85.90 - ACUTE PANCREATITIS WITHOUT NECROSIS OR INFECTION, UNSP Qualifiers: Chronicity: acute Pancreatitis type: unspecified pancreatitis type Acute pancreatitis complication: unspecified Qualified Code(s): K85.90 - Acute pancreatitis without necrosis or infection, unspecified (2) Acute pancreatitis due to calculus of common bile duct Assessment/Plan: surgery consult reviewed Code(s): K85.10 - BILIARY ACUTE PANCREATITIS WITHOUT NECROSIS OR INFECTION (3) Cholelithiasis Code(s): K80.20 - CALCULUS OF GALLBLADDER W/O CHOLECYSTITIS W/O OBSTRUCTION (4) Gallstone pancreatitis Code(s): K85.10 - BILIARY ACUTE PANCREATITIS WITHOUT NECROSIS OR INFECTION
--- NOTE | 2018-08-22 17:31 | CON.ID ---
Consult - History of Present Illness History of Present Illness: 58 y.o. female was admitted for abdominal pain 3 days ago that began on that day. She states that the pain was sharp and severe, generalized but worst in the epigastric region. Also reported multiple vomiting episodes. Pt denied previous episodes, any recent travel, or sick contacts. She also denies alcohol abuse. In the ER she was found to have mild leukocytosis, mild temperature elevations, hyperglycemia along with elevated LFTs and Lipase of 30K. Abdominal US revealed cholelithiasis with dilated CBD. CT scan showed changes consistent with acute non-necrotizing pancreatitis. Pain has since improved on IVF. Currently still with pain in epigastric area with palpation. No current n/v /d. Mildly elevated temp last night but no chills. She has no other complaints. 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 History of Recent Travel: No Home Medications - Allergies Allergies/Adverse Reactions: Allergies Allergy/AdvReac Type Severity Reaction Status Date / Time No Known Allergies Allergy Verified 08/19/18 11:08 - Home Medications Home Medications: Ambulatory Orders NK [No Known Home Medication] 08/19/18 Family Disease History - Family Disease History Family Disease History: Other: Grandparent (Paternal GF w/ colon cancer), Father (Alive: DM/HTN/Dementia), Mother (: 71: [place]), Brother (1, healthy), Sister (2, healthy), Daughter (2, 1 w/ DM II) Review of Systems - Review of Systems Constitutional: reports: No Symptoms Eyes: reports: No Symptoms HENT: reports: No Symptoms Neck: reports: No Symptoms Cardiovascular: reports: No Symptoms Respiratory: reports: No Symptoms Gastrointestinal: reports: Abdominal Pain (mild abd pain in epigastric region) Genitourinary: reports: No Symptoms Musculoskeletal: reports: No Symptoms Integumentary: reports: No Symptoms Neurological: reports: No Symptoms Endocrine: reports: No Symptoms Hematology/Lymphatic: reports: No Symptoms Psychiatric: reports: No Symptoms Physical Exam Vital Signs: Vital Signs Temperature 98 F 10/13/18 09:25 Pulse Rate 104 H 08/22/18 09:25 Respiratory Rate 18 08/22/18 09:25 Blood Pressure 140/70 08/22/18 09:25 O2 Sat by Pulse Oximetry (%) 98 08/22/18 09:00 Constitutional: Yes: No Distress, Calm Eyes: Yes: Conjunctiva Clear HENT: Yes: Atraumatic Neck: Yes: Supple Cardiovascular: Yes: Tachycardia Respiratory: Yes: Regular Gastrointestinal: Yes: Normal Bowel Sounds, Soft, Tenderness, Epigastrium Renal/: Yes: WNL Musculoskeletal: Yes: WNL Extremities: Yes: WNL Edema: No Integumentary: Yes: WNL Neurological: Yes: Alert, Oriented Labs: CBC, BMP 08/21/18 08:10 08/22/18 06:20 Laboratory Tests 08/19/18 08/19/18 08/19/18 11:30 11:30 11:30 WBC 11.9 H RBC 4.78 Hgb 14.0 Hct 42.6 MCV 89.1 MCH 29.3 MCHC 32.9 RDW 13.2 Plt Count 266 MPV 8.0 Absolute Neuts (auto) 10.3 H Neutrophils % 86.1 H Lymphocytes % 8.0 Monocytes % 5.6 Eosinophils % 0.2 Basophils % 0.1 Nucleated RBC % 0 Sodium 141 Potassium 5.9 H Chloride 108 H Carbon Dioxide 24 Anion Gap 8 BUN 13 Creatinine 0.6 Creat Clearance w eGFR > 60 Random Glucose 319 H* Lactic Acid Calcium 9.4 Total Bilirubin 1.5 H Direct Bilirubin AST 585 H ALT 394 H Alkaline Phosphatase 144 H LD Total 555 H Creatine Kinase 58 Troponin I < 0.02 C-Reactive Protein Total Protein 7.5 Albumin 3.4 Triglycerides Total Amylase Lipase > 04187 H Urine Color Ltyellow Urine Appearance Clear Urine pH 7.0 Ur Specific Orr 1.013 Urine Protein Negative Urine Glucose (UA) 3+ H Urine Ketones 1+ H Urine Blood Negative Urine Nitrite Negative Urine Bilirubin Negative Urine Urobilinogen Negative Ur Leukocyte Esterase Negative Acetone, Qual Negative L 08/19/18 08/19/18 08/20/18 13:07 20:55 01:30 WBC RBC Hgb Hct MCV MCH MCHC RDW Plt Count MPV Absolute Neuts (auto) Neutrophils % Lymphocytes % Monocytes % Eosinophils % Basophils % Nucleated RBC % Sodium Potassium Chloride Carbon Dioxide Anion Gap BUN Creatinine Creat Clearance w eGFR Random Glucose Lactic Acid 1.2 Calcium Total Bilirubin Direct Bilirubin AST ALT Alkaline Phosphatase LD Total Cancelled Creatine Kinase Troponin I C-Reactive Protein Total Protein Albumin Triglycerides 84 Total Amylase Lipase Urine Color Urine Appearance Urine pH Ur Specific Orr Urine Protein Urine Glucose (UA) Urine Ketones Urine Blood Urine Nitrite Urine Bilirubin Urine Urobilinogen Ur Leukocyte Esterase Acetone, Qual 08/20/18 08/20/18 08/20/18 01:30 01:30 01:30 WBC 7.7 RBC 4.37 Hgb 13.0 Hct 39.0 MCV 89.2 MCH 29.7 MCHC 33.3 RDW 13.4 Plt Count 228 MPV 8.1 Absolute Neuts (auto) 5.7 Neutrophils % 74.0 Lymphocytes % 19.3 D Monocytes % 5.8 Eosinophils % 0.5 D Basophils % 0.4 D Nucleated RBC % 0 Sodium 139 Potassium 3.8 Chloride 106 Carbon Dioxide 27 Anion Gap 7 L BUN 9 Creatinine 0.5 L Creat Clearance w eGFR > 60 Random Glucose 169 H Lactic Acid Calcium 8.1 L Total Bilirubin 0.4 Direct Bilirubin AST 222 H ALT 293 H Alkaline Phosphatase 126 H LD Total Creatine Kinase Troponin I C-Reactive Protein Total Protein 6.9 Albumin 3.1 L Triglycerides Total Amylase 1065 H Lipase Urine Color Urine Appearance Urine pH Ur Specific Orr Urine Protein Urine Glucose (UA) Urine Ketones Urine Blood Urine Nitrite Urine Bilirubin Urine Urobilinogen Ur Leukocyte Esterase Acetone, Qual 08/20/18 08/20/18 08/20/18 01:30 06:00 06:42 WBC 7.9 RBC 3.96 Hgb 11.5 Hct 35.2 MCV 88.8 MCH 29.0 MCHC 32.7 RDW 13.0 Plt Count 228 MPV 7.9 Absolute Neuts (auto) 6.0 Neutrophils % 76.2 Lymphocytes % 17.4 Monocytes % 5.5 Eosinophils % 0.6 Basophils % 0.3 Nucleated RBC % 0 Sodium 140 Potassium 3.7 Chloride 107 Carbon Dioxide 25 Anion Gap 8 BUN 8 Creatinine 0.4 L Creat Clearance w eGFR > 60 Random Glucose 162 H Lactic Acid Calcium 7.6 L Total Bilirubin 0.4 Direct Bilirubin AST 133 H ALT 213 H Alkaline Phosphatase 103 LD Total Creatine Kinase Troponin I C-Reactive Protein Total Protein 5.8 L Albumin 2.6 L Triglycerides Total Amylase Lipase 45993 H Urine Color Urine Appearance Urine pH Ur Specific Orr Urine Protein Urine Glucose (UA) Urine Ketones Urine Blood Urine Nitrite Urine Bilirubin Urine Urobilinogen Ur Leukocyte Esterase Acetone, Qual 08/21/18 08/21/18 08/21/18 05:30 05:30 05:30 WBC RBC Hgb Hct MCV MCH MCHC RDW Plt Count MPV Absolute Neuts (auto) Neutrophils % Lymphocytes % Monocytes % Eosinophils % Basophils % Nucleated RBC % Sodium 140 Potassium 3.5 Chloride 108 H Carbon Dioxide 20 L Anion Gap 11 BUN 6 L Creatinine 0.2 L Creat Clearance w eGFR > 60 Random Glucose 88 Lactic Acid Calcium 8.0 L Total Bilirubin 0.5 Direct Bilirubin AST 50 H ALT 132 H Alkaline Phosphatase 94 LD Total Creatine Kinase Troponin I C-Reactive Protein 11.9 H Cancelled Total Protein 5.6 L Albumin 2.5 L Triglycerides Total Amylase Cancelled 259 H Lipase Cancelled 1497 H Urine Color Urine Appearance Urine pH Ur Specific Orr Urine Protein Urine Glucose (UA) Urine Ketones Urine Blood Urine Nitrite Urine Bilirubin Urine Urobilinogen Ur Leukocyte Esterase Acetone, Qual 08/21/18 08/21/18 08/22/18 08:10 11:00 06:20 WBC 8.8 RBC 3.97 Hgb 11.5 Hct 35.3 MCV 89.0 MCH 29.1 MCHC 32.7 RDW 13.2 Plt Count 230 MPV 8.1 Absolute Neuts (auto) 7.2 Neutrophils % 81.6 Lymphocytes % 11.7 D Monocytes % 5.4 Eosinophils % 0.9 Basophils % 0.4 Nucleated RBC % 0 Sodium 139 141 Potassium 3.9 3.9 Chloride 106 110 H Carbon Dioxide 21 18 L Anion Gap 12 13 BUN 6 L 5 L Creatinine 0.3 L 0.3 L Creat Clearance w eGFR > 60 > 60 Random Glucose 81 73 L Lactic Acid Calcium 8.5 7.9 L Total Bilirubin 0.6 0.4 Direct Bilirubin 0.1 AST 51 H 31 ALT 140 H 94 H Alkaline Phosphatase 113 100 LD Total Creatine Kinase Troponin I C-Reactive Protein Total Protein 6.7 6.0 L Albumin 2.9 L 2.5 L Triglycerides Total Amylase Lipase Urine Color Urine Appearance Urine pH Ur Specific Orr Urine Protein Urine Glucose (UA) Urine Ketones Urine Blood Urine Nitrite Urine Bilirubin Urine Urobilinogen Ur Leukocyte Esterase Acetone, Qual Imaging - Results Cat Scan: Report Reviewed Ultrasound: Report Reviewed Problem List - Problems (1) Acute pancreatitis due to calculus of common bile duct Code(s): K85.10 - BILIARY ACUTE PANCREATITIS WITHOUT NECROSIS OR INFECTION (2) Cholelithiasis Code(s): K80.20 - CALCULUS OF GALLBLADDER W/O CHOLECYSTITIS W/O OBSTRUCTION Assessment/Plan 58 y.o. female admitted with epigastric pain, n/v, elevated LFTs/Lipase. Imaging results revealed dilated CBD, cholelithiasis, and pancreatic inflammation Gallstone Pancreatitis Cholelithiasis -- Levaquin/Flagyl IV for now, IVF, pain control -- LFTs/Lipase trending down -- awaiting MRCP, surgical evaluation -- continue monitor will follow Thank you
[2018-08-23] MEDS: SODIUM CHLORIDE 1,000 ML IV SCH ×3 (03:08→21:56)
[2018-08-23 07:23] LABS: BASO % 0.3 % (0-2.0); EOS % 1.5 % (0-4.5); HEMATOCRIT 35.5 % (32.4-45.2); HEMOGLOBIN 11.9 GM/dL (10.7-15.3); LYMPH % 13.5 % (8-40); MCH 29.5 pg (25.7-33.7); MCHC 33.6 g/dl (32.0-36.0); MEAN PLT VOLUME 7.3 fl (7.5-11.1); NEUT % 78.7 % (42.8-82.8); PLATELET COUNT 271 K/MM3 (134-434); RBC 4.04 M/mm3 (3.60-5.2); RDW 13.2 % (11.6-15.6); WHITE BLOOD COUNT 9.2 K/mm3 (4.0-10.0)
[2018-08-23 08:16] LABS: ALBUMIN 2.3 g/dl (3.4-5.0); ALK PHOS 92 U/L (45-117); AMYLASE 30 U/L (25-115); ANION GAP 10 MMOL/L (8-16); BILIRUBIN,TOTAL 0.3 mg/dL (0.2-1); BLOOD UREA NITROGEN 3 mg/dL (7-18); CALCIUM 7.7 mg/dL (8.5-10.1); CHLORIDE 112 mmol/L (98-107); CO2 19 mmol/L (21-32); CREATININE 0.3 mg/dL (0.55-1.3); GLUCOSE,RANDOM 115 mg/dL (74-106); LIPASE 154 U/L (73-393); POTASSIUM 3.2 mmol/L (3.5-5.1); SGOT/AST 22 U/L (15-37); SGPT/ALT 67 U/L (13-61); SODIUM 141 mmol/L (136-145); TOT PROT 5.7 g/dl (6.4-8.2)
--- NOTE | 2018-08-23 16:52 | PN ---
Progress Note, Physician - Current Medication List Current Medications: Active Medications Sodium Chloride (Normal Saline -) 1,000 mls @ 150 mls/hr IV ASDIR BENSON Last Admin: 08/23/18 03:08 Dose: 150 mls/hr Levofloxacin (Levaquin 500 Mg Premixed Ivpb -) 500 mg in 100 mls @ 100 mls/hr IVPB DAILY BENSON; Protocol Last Admin: 08/23/18 09:45 Dose: 100 mls/hr Morphine Sulfate (Morphine Sulfate) 3 mg IVPUSH Q4H PRN PRN Reason: PAIN LEVEL 6-10 Ondansetron HCl (Zofran Injection) 4 mg IVPUSH Q4H PRN PRN Reason: NAUSEA AND/OR VOMITING Last Admin: 08/22/18 06:17 Dose: 4 mg - Objective Vital Signs: Vital Signs Temperature 98.6 F 08/23/18 05:13 Pulse Rate 104 H 08/23/18 05:13 Respiratory Rate 16 08/23/18 09:00 Blood Pressure 152/80 08/23/18 05:13 O2 Sat by Pulse Oximetry (%) 97 08/23/18 09:00 Constitutional: Yes: No Distress HENT: Yes: Atraumatic Neck: Yes: Supple Cardiovascular: Yes: Regular Rate and Rhythm Respiratory: Yes: CTA Bilaterally Gastrointestinal: Yes: Tenderness, Epigastrium Extremities: Yes: WNL Edema: No Peripheral Pulses WNL: Yes Neurological: Yes: Alert, Oriented Labs: CBC, BMP 08/23/18 06:10 08/23/18 06:10 Problem List - Problems (1) Pancreatitis Assessment/Plan: on clear liquid diet labs much improved Code(s): K85.90 - ACUTE PANCREATITIS WITHOUT NECROSIS OR INFECTION, UNSP Qualifiers: Chronicity: acute Pancreatitis type: unspecified pancreatitis type Acute pancreatitis complication: unspecified Qualified Code(s): K85.90 - Acute pancreatitis without necrosis or infection, unspecified (2) Acute pancreatitis due to calculus of common bile duct Assessment/Plan: for surgery need cardiac clearance Code(s): K85.10 - BILIARY ACUTE PANCREATITIS WITHOUT NECROSIS OR INFECTION (3) Cholelithiasis Code(s): K80.20 - CALCULUS OF GALLBLADDER W/O CHOLECYSTITIS W/O OBSTRUCTION Qualifiers: Cholelithiasis location: gallbladder Cholecystitis presence: with cholecystitis Cholecystitis acuity: acute Biliary obstruction: without biliary obstruction Qualified Code(s): K80.00 - Calculus of gallbladder with acute cholecystitis without obstruction (4) Gallstone pancreatitis Code(s): K85.10 - BILIARY ACUTE PANCREATITIS WITHOUT NECROSIS OR INFECTION Assessment/Plan need cardiac clearance
--- NOTE | 2018-08-23 17:29 | PN ---
Progress Note, Physician History of Present Illness: Pt is alert, afebrile, no distress. Pain in epigastric area has improved. Tolerating current diet. No new complaints. - Current Medication List Current Medications: Active Medications Sodium Chloride (Normal Saline -) 1,000 mls @ 150 mls/hr IV ASDIR BENSON Last Admin: 08/23/18 03:08 Dose: 150 mls/hr Levofloxacin (Levaquin 500 Mg Premixed Ivpb -) 500 mg in 100 mls @ 100 mls/hr IVPB DAILY B[facility]; Protocol Last Admin: 08/23/18 09:45 Dose: 100 mls/hr Metronidazole (Flagyl 500mg Premixed Ivpb -) 500 mg in 100 mls @ 100 mls/hr IVPB Q8H-IV BENSON Morphine Sulfate (Morphine Sulfate) 3 mg IVPUSH Q4H PRN PRN Reason: PAIN LEVEL 6-10 Ondansetron HCl (Zofran Injection) 4 mg IVPUSH Q4H PRN PRN Reason: NAUSEA AND/OR VOMITING Last Admin: 08/22/18 06:17 Dose: 4 mg Potassium Chloride (Potassium Chloride Oral Liquid) 40 meq PO BID BENSON - Objective Vital Signs: Vital Signs Temperature 98.6 F 08/23/18 05:13 Pulse Rate 104 H 08/23/18 05:13 Respiratory Rate 16 08/23/18 09:00 Blood Pressure 152/80 08/23/18 05:13 O2 Sat by Pulse Oximetry (%) 97 08/23/18 09:00 Constitutional: Yes: No Distress, Calm Cardiovascular: Yes: Regular Rate and Rhythm Respiratory: Yes: Regular Gastrointestinal: Yes: Normal Bowel Sounds, Soft, Tenderness (epigastric, tender only to deep palpation) Genitourinary: Yes: WNL Extremities: Yes: WNL Neurological: Yes: Alert, Oriented Labs: CBC, BMP 08/23/18 06:10 08/23/18 06:10 CMP Sodium 141 mmol/L (136-145) 08/23/18 06:10 Potassium 3.2 mmol/L (3.5-5.1) L 08/23/18 06:10 Chloride 112 mmol/L (98-107) H 08/23/18 06:10 Carbon Dioxide 19 mmol/L (21-32) L 08/23/18 06:10 Anion Gap 10 MMOL/L (8-16) 08/23/18 06:10 BUN 3 mg/dL (7-18) L 08/23/18 06:10 Creatinine 0.3 mg/dL (0.55-1.3) L 08/23/18 06:10 Creat Clearance w eGFR > 60 (>60) 08/23/18 06:10 Random Glucose 115 mg/dL (74-106) H 08/23/18 06:10 Lactic Acid 1.2 mmol/L (0.4-2.0) 08/20/18 01:30 Calcium 7.7 mg/dL (8.5-10.1) L 08/23/18 06:10 Total Bilirubin 0.3 mg/dL (0.2-1) 08/23/18 06:10 Direct Bilirubin 0.1 mg/dL (0.0-0.2) 08/22/18 06:20 AST 22 U/L (15-37) 08/23/18 06:10 ALT 67 U/L (13-61) H 08/23/18 06:10 Alkaline Phosphatase 92 U/L (45-117) 08/23/18 06:10 LD Total Cancelled 08/19/18 13:07 Creatine Kinase 58 IU/L (26-192) 08/19/18 11:30 Troponin I < 0.02 ng/ml (0.00-0.05) 08/19/18 11:30 C-Reactive Protein 11.9 MG/DL (0.00-0.3) H 08/21/18 05:30 Total Protein 5.7 g/dl (6.4-8.2) L 08/23/18 06:10 Albumin 2.3 g/dl (3.4-5.0) L 08/23/18 06:10 Triglycerides 84 mg/dL (0-150) 08/19/18 20:55 Total Amylase 30 U/L (25-115) 08/23/18 06:10 Lipase 154 U/L (73-393) 08/23/18 06:10 Problem List - Problems (1) Acute pancreatitis due to calculus of common bile duct Code(s): K85.10 - BILIARY ACUTE PANCREATITIS WITHOUT NECROSIS OR INFECTION (2) Cholelithiasis Code(s): K80.20 - CALCULUS OF GALLBLADDER W/O CHOLECYSTITIS W/O OBSTRUCTION Assessment/Plan 58 y.o. female admitted with epigastric pain, n/v, elevated LFTs/Lipase. Imaging results revealed dilated CBD, cholelithiasis, and pancreatic inflammation Gallstone Pancreatitis Cholecystitis -- continue antibiotics for now -- LFTs/Lipase trending down -- surgical management -- continue monitor
[2018-08-23] MEDS ORDERED: ACETAMINOPHEN 325 MG TABLET (FP) ONE (17:45)
[2018-08-23] MEDS ORDERED: POTASSIUM CHLORIDE ORAL LIQUID 20 MEQ/15 ML PO ONE (18:30)
[2018-08-23] MEDS: POTASSIUM CHLORIDE ORAL LIQUID 20 MEQ/15 ML PO SCH (21:51)
[2018-08-24] MEDS: SODIUM CHLORIDE 1,000 ML IV SCH ×3 (06:45→23:18)
[2018-08-24 07:53] LABS: BASO % 0.5 % (0-2.0); EOS % 1.7 % (0-4.5); HEMATOCRIT 38.5 % (32.4-45.2); HEMOGLOBIN 12.8 GM/dL (10.7-15.3); LYMPH % 23.1 % (8-40); MCH 29.3 pg (25.7-33.7); MCHC 33.2 g/dl (32.0-36.0); MEAN CELL VOLUME 88.1 fl (80-96); MEAN PLT VOLUME 7.5 fl (7.5-11.1); NEUT % 67.7 % (42.8-82.8); PLATELET COUNT 336 K/MM3 (134-434); RBC 4.37 M/mm3 (3.60-5.2); RDW 13.4 % (11.6-15.6); WHITE BLOOD COUNT 7.8 K/mm3 (4.0-10.0)
[2018-08-24 08:19] LABS: ALBUMIN 2.8 g/dl (3.4-5.0); ALK PHOS 103 U/L (45-117); ANION GAP 6 MMOL/L (8-16); BILIRUBIN,TOTAL 0.4 mg/dL (0.2-1); CALCIUM 8.8 mg/dL (8.5-10.1); CHLORIDE 114 mmol/L (98-107); CO2 21 mmol/L (21-32); CREATININE 0.4 mg/dL (0.55-1.3); GLUCOSE,RANDOM 144 mg/dL (74-106); POTASSIUM 3.4 mmol/L (3.5-5.1); SGOT/AST 16 U/L (15-37); SGPT/ALT 58 U/L (13-61); SODIUM 141 mmol/L (136-145); TOT PROT 6.7 g/dl (6.4-8.2)
[2018-08-24 08:28] LABS: BLOOD UREA NITROGEN 2 mg/dL (7-18)
[2018-08-24] MEDS: POTASSIUM CHLORIDE ORAL LIQUID 20 MEQ/15 ML PO SCH ×2 (10:26→21:32)
--- NOTE | 2018-08-24 11:03 | CON.CARD ---
Consult Consult Specialty:: Cardiology Referred by:: Zoila Escobar MD Reason for Consultation:: Pre-operative CV evaluation - History of Present Illness Chief Complaint: Abd pain History of Present Illness: 58F without sig PMHx admitted 08/19/18 for evaluation of severe post-prandial upper abdominal pain, nausea and emesis without fevers or chills referable to acute non-necrotizing GS pancreatitis and acute cholecystitis, MRCP negative for choledocholithiasis, for which she is scheduled for lap vs open cholecystectomy. Regarding CV symptoms, denies exertional chest pain, dyspnea, fatigue, palpitations, near or true syncope, orthopnea, PND, LE edema or change in exercise capacity. - History Source History Provided By: Patient, Caregiver Limitations to Obtaining History: No Limitations - Past Medical History Cardio/Vascular: Yes: HTN ...: No - Past Surgical History Additional Surgical History: Denies - Alcohol/Substance Use Hx Alcohol Use: No History of Substance Use: reports: None - Smoking History Smoking history: Never smoked - Social History Usual Living Arrangement: With Spouse ADL: Independent Occupation: Works for [employer] History of Recent Travel: No Home Medications - Allergies Allergies/Adverse Reactions: Allergies Allergy/AdvReac Type Severity Reaction Status Date / Time No Known Allergies Allergy Verified 08/19/18 11:08 - Home Medications Home Medications: Ambulatory Orders NK [No Known Home Medication] 08/19/18 Family Disease History - Family Disease History Family Disease History: Other: Grandparent (Paternal GF w/ colon cancer), Father (Alive: DM/HTN/Dementia), Mother (: 71: [place]), Brother (1, healthy), Sister (2, healthy), Daughter (2, 1 w/ DM II) Review of Systems - Review of Systems Constitutional: reports: No Symptoms Eyes: reports: No Symptoms HENT: reports: No Symptoms Neck: reports: No Symptoms Cardiovascular: reports: No Symptoms Respiratory: reports: No Symptoms Gastrointestinal: reports: Abdominal Pain, Nausea, Vomiting Genitourinary: reports: No Symptoms Musculoskeletal: reports: No Symptoms Integumentary: reports: No Symptoms Neurological: reports: No Symptoms Endocrine: reports: No Symptoms Vital Signs: Vital Signs Temperature 98.3 F 08/24/18 09:25 Pulse Rate 99 H 08/24/18 09:25 Respiratory Rate 20 10/15/18 09:25 Blood Pressure 148/78 10/15/18 09:25 O2 Sat by Pulse Oximetry (%) 98 08/23/18 21:00 Constitutional: Yes: No Distress, Calm, Thin Neck: Yes: Supple Respiratory: Yes: Regular, CTA Bilaterally Gastrointestinal: Yes: Soft, Hypoactive Bowel Sounds, Tenderness, Epigastrium Cardiovascular: Yes: Regular Rate and Rhythm JVD: No Carotid Bruit: No Heart Sounds: Yes: S1, S2 Edema: No - Other Data Labs, Other Data: CBC, BMP 08/24/18 07:35 08/24/18 07:35 ST @ 118 Imaging - Results Chest X-ray: Report Reviewed (NAD) Problem List - Problems (1) Acute cholecystitis due to biliary calculus Code(s): K80.00 - CALCULUS OF GALLBLADDER W ACUTE CHOLECYST W/O OBSTRUCTION (2) Pre-operative cardiovascular examination Code(s): Z01.810 - ENCOUNTER FOR PREPROCEDURAL CARDIOVASCULAR EXAMINATION (3) Cholelithiasis Code(s): K80.20 - CALCULUS OF GALLBLADDER W/O CHOLECYSTITIS W/O OBSTRUCTION Qualifiers: Cholelithiasis location: gallbladder Cholecystitis presence: with cholecystitis Cholecystitis acuity: acute Biliary obstruction: without biliary obstruction Qualified Code(s): K80.00 - Calculus of gallbladder with acute cholecystitis without obstruction (4) Gallstone pancreatitis Code(s): K85.10 - BILIARY ACUTE PANCREATITIS WITHOUT NECROSIS OR INFECTION Assessment/Plan 1. Pre-operative cardiovascular evaluation prior to cholecystectomy 2. Acute Gallstone Pancreatitis and Cholecystitis w/o choledocholithiasis with LFTs/Lipase trending down P:1. Given absence of symptoms of acute coronary syndrome, decompensated CHF or malignant arrhythmia, may proceed with cholecystectomy from CV-standpoint 2. F/u echo results already ordered, repeat ECG 3. Continue empiric abx course for biliary source, analgesia and antiemetics as needed 4. Thank you for consultative opportunity
--- NOTE | 2018-08-24 11:50 | PN ---
Progress Note (short form) - Note Progress Note: Attending Surgeon Patient has no c/o; OR was cancelled for today as patient needed a Cardiology Consult and pre-op echo; this was not determined until late on 08/23/18; surgery is rescheduled for 0800 08/25/18; d/w patient and her family. Deo Lopez MD FACS
--- NOTE | 2018-08-24 12:24 | PN ---
Progress Note, Physician History of Present Illness: patient stable still with abd discomfort - Current Medication List Current Medications: Active Medications Sodium Chloride (Normal Saline -) 1,000 mls @ 150 mls/hr IV ASDIR BENSON Last Admin: 08/24/18 06:45 Dose: 150 mls/hr Levofloxacin (Levaquin 500 Mg Premixed Ivpb -) 500 mg in 100 mls @ 100 mls/hr IVPB DAILY BENSON; Protocol Last Admin: 08/24/18 10:27 Dose: 100 mls/hr Metronidazole (Flagyl 500mg Premixed Ivpb -) 500 mg in 100 mls @ 100 mls/hr IVPB Q8H-IV BENSON Last Admin: 08/24/18 09:19 Dose: 100 mls/hr Morphine Sulfate (Morphine Sulfate) 3 mg IVPUSH Q4H PRN PRN Reason: PAIN LEVEL 6-10 Ondansetron HCl (Zofran Injection) 4 mg IVPUSH Q4H PRN PRN Reason: NAUSEA AND/OR VOMITING Last Admin: 08/22/18 06:17 Dose: 4 mg Potassium Chloride (Potassium Chloride Oral Liquid) 40 meq PO BID BENSON Last Admin: 08/24/18 10:26 Dose: Not Given - Objective Vital Signs: Vital Signs Temperature 98.3 F 08/24/18 09:25 Pulse Rate 99 H 08/24/18 09:25 Respiratory Rate 20 08/24/18 09:25 Blood Pressure 148/78 08/24/18 09:25 O2 Sat by Pulse Oximetry (%) 98 08/23/18 21:00 Constitutional: Yes: Calm, Mild Distress Cardiovascular: Yes: Regular Rate and Rhythm Respiratory: Yes: Regular, CTA Bilaterally Gastrointestinal: Yes: Soft, Hypoactive Bowel Sounds, Tenderness Musculoskeletal: Yes: WNL Extremities: Yes: WNL Neurological: Yes: Alert, Oriented Psychiatric: Yes: Alert, Oriented Labs: CBC, BMP 08/24/18 07:35 08/24/18 07:35 Assessment/Plan Problem List - Problems (1) Acute pancreatitis due to calculus of common bile duct Code(s): K85.10 - BILIARY ACUTE PANCREATITIS WITHOUT NECROSIS OR INFECTION (2) Cholelithiasis Code(s): K80.20 - CALCULUS OF GALLBLADDER W/O CHOLECYSTITIS W/O OBSTRUCTION Assessment/Plan 58 y.o. female admitted with epigastric pain, n/v, elevated LFTs/Lipase. Imaging results revealed dilated CBD, cholelithiasis, and pancreatic inflammation Gallstone Pancreatitis Cholecystitis continue abx await for final plan rest as per the team hydration
--- NOTE | 2018-08-24 15:54 | ECHO ---
Name: MARY FINK Exam:Adult Echocardiogram Study Date: 08/24/2018 01:05 PM Age: 58 yrs Reason For Study: PRE OP CLEARANCE Height: 60 in Weight: 138 lb BSA: 1.6 m2 MMode/2D Measurements & Calculations IVSd: 0.81 cm Ao root diam: 2.5 cm LVIDd: 4.7 cm LA dimension: 3.2 cm LVIDs: 3.1 cm LVPWd: 0.70 cm EDV(Teich): 100.9 ml ESV(Teich): 38.0 ml Doppler Measurements & Calculations MV E max christiano: 76.5 cm/sec Ao V2 max: 139.6 cm/sec MV A max christiano: 70.1 cm/sec Ao max P.8 mmHg MV E/A: 1.1 MV dec time: 0.17 sec LV V1 max P.2 mmHg MR max christiano: 388.4 cm/sec LV V1 max: 73.4 cm/sec MR max P.4 mmHg Med Peak E' Christiano: 9.6 cm/sec Med E/e': 8.0 Lat Peak E' Christiano: 11.1 cm/sec Lat E/e': 6.9 Procedure A complete two-dimensional transthoracic echocardiogram was performed (2D, M-mode, Doppler and color flow Doppler). Left Ventricle The left ventricle is normal in size. Left ventricular systolic function is low normal. Ejection Frac tion = 55-60%. No regional wall motion abnormalities noted. Right Ventricle The right ventricle is normal size. The right ventricular systolic function is normal. Atria The left atrial size is normal. Right atrial size is normal. Mitral Valve There is mild mitral annular calcification. There is mild mitral regurgitation. Tricuspid Valve The tricuspid valve is normal in structure and function. There is mild tricuspid regurgitation. Aortic Valve The aortic valve is normal in structure and function. No aortic regurgitation is present. Pulmonic Valve The pulmonic valve is not well visualized. Trace pulmonic valvular regurgitation. Great Vessels The aortic root is normal size. Pericardium/Pleura There is no pericardial effusion. Interpretation Summary The left ventricle is normal in size. Left ventricular systolic function is low normal. No regional wall motion abnormalities noted. Ejection Fraction = 55-60%. The right ventricular systolic function is normal. The left atrial size is normal. Right atrial size is normal. There is mild mitral annular calcification. There is mild mitral regurgitation. There is mild tricuspid regurgitation. Trace pulmonic valvular regurgitation. There is no pericardial effusion. Previous study is not available for comparison Abelardo Carlos MD 08/24/2018 03:54 PM
--- NOTE | 2018-08-24 17:42 | PN ---
Progress Note, Physician - Current Medication List Current Medications: Active Medications Sodium Chloride (Normal Saline -) 1,000 mls @ 150 mls/hr IV ASDIR BENSON Last Admin: 08/24/18 15:38 Dose: 150 mls/hr Levofloxacin (Levaquin 500 Mg Premixed Ivpb -) 500 mg in 100 mls @ 100 mls/hr IVPB DAILY BENSON; Protocol Last Admin: 08/24/18 10:27 Dose: 100 mls/hr Metronidazole (Flagyl 500mg Premixed Ivpb -) 500 mg in 100 mls @ 100 mls/hr IVPB Q8H-IV BENSON Last Admin: 08/24/18 09:19 Dose: 100 mls/hr Morphine Sulfate (Morphine Sulfate) 3 mg IVPUSH Q4H PRN PRN Reason: PAIN LEVEL 6-10 Ondansetron HCl (Zofran Injection) 4 mg IVPUSH Q4H PRN PRN Reason: NAUSEA AND/OR VOMITING Last Admin: 08/22/18 06:17 Dose: 4 mg Potassium Chloride (Potassium Chloride Oral Liquid) 40 meq PO BID BENSON Last Admin: 08/24/18 10:26 Dose: Not Given - Objective Vital Signs: Vital Signs Temperature 98.6 F 08/24/18 14:46 Pulse Rate 98 H 08/24/18 14:46 Respiratory Rate 20 08/24/18 14:46 Blood Pressure 154/95 08/24/18 14:46 O2 Sat by Pulse Oximetry (%) 98 08/23/18 21:00 Constitutional: Yes: No Distress HENT: Yes: Atraumatic Neck: Yes: Supple Cardiovascular: Yes: Regular Rate and Rhythm Respiratory: Yes: CTA Bilaterally Gastrointestinal: Yes: Tenderness, Epigastrium Extremities: Yes: WNL Edema: No Peripheral Pulses WNL: Yes Neurological: Yes: Alert, Oriented Labs: CBC, BMP 08/24/18 07:35 08/24/18 07:35 Problem List - Problems (1) Pancreatitis Assessment/Plan: on clear liquid diet Code(s): K85.90 - ACUTE PANCREATITIS WITHOUT NECROSIS OR INFECTION, UNSP Qualifiers: Chronicity: acute Pancreatitis type: unspecified pancreatitis type Acute pancreatitis complication: unspecified Qualified Code(s): K85.90 - Acute pancreatitis without necrosis or infection, unspecified (2) Acute pancreatitis due to calculus of common bile duct Assessment/Plan: for surgery in am Code(s): K85.10 - BILIARY ACUTE PANCREATITIS WITHOUT NECROSIS OR INFECTION (3) Cholelithiasis Code(s): K80.20 - CALCULUS OF GALLBLADDER W/O CHOLECYSTITIS W/O OBSTRUCTION Qualifiers: Cholelithiasis location: gallbladder Cholecystitis presence: with cholecystitis Cholecystitis acuity: acute Biliary obstruction: without biliary obstruction Qualified Code(s): K80.00 - Calculus of gallbladder with acute cholecystitis without obstruction (4) Gallstone pancreatitis Code(s): K85.10 - BILIARY ACUTE PANCREATITIS WITHOUT NECROSIS OR INFECTION
[2018-08-25] MEDS ORDERED: MIDAZOLAM HCL 2 MG/2 ML SINGLE DOSE VIAL ONE (07:27)
[2018-08-25] MEDS ORDERED: ROCURONIUM BROMIDE 50 MG/5 ML VIAL ONE (07:27)
[2018-08-25] MEDS ORDERED: SUCCINYLCHOLINE CHLORIDE 200 MG/10 ML VIAL ONE (07:27)
[2018-08-25] MEDS ORDERED: PROPOFOL 20 ML ONE ×2 (07:27→09:34)
[2018-08-25] MEDS ORDERED: KETOROLAC TROMETHAMINE 30 MG/1 ML VIAL ONE (07:28)
[2018-08-25] MEDS ORDERED: ceFAZolin SODIUM 1 GM VIAL ONE (07:28)
[2018-08-25] MEDS ORDERED: SODIUM CHLORIDE 0.9% P/F 10 ML VIAL IJ ONE (07:28)
[2018-08-25] MEDS ORDERED: LIDOCAINE HCL/PF 2% SDV 5ML VIAL ONE (07:28)
[2018-08-25] MEDS ORDERED: DEXAMETHASONE SOD PHOSPHATE 4 MG/1 ML VIAL ONE (07:28)
[2018-08-25] MEDS ORDERED: BUPIVACAINE HCL/PF 0.5% (5MG/ML) 10 ML VIAL ONE ×2 (07:41→08:04)
[2018-08-25] MEDS ORDERED: ceFAZolin SODIUM 1 GM VIAL IVPB ONE (08:34)
[2018-08-25] MEDS ORDERED: GLYCOPYRROLATE 0.2 MG/1 ML VIAL ONE ×2 (08:44)
[2018-08-25] MEDS ORDERED: NEOSTIGMINE METHYLSULFATE 0.5 MG/ML - 10 ML MDV ONE (08:44)
[2018-08-25] MEDS ORDERED: LABETALOL HCL 5 MG/1 ML (100MG/20 ML VIAL) ONE (09:21)
[2018-08-25] MEDS ORDERED: BUPIVACAINE HCL/PF 0.5% (5MG/ML) 10 ML VIAL IJ ONE ×2 (09:36)
[2018-08-25] MEDS ORDERED: fentaNYL CITRATE 250 MCG/5 ML VIAL ONE (09:42)
--- NOTE | 2018-08-25 10:00 | OP ---
Operative Note - Note: Operative Date: 08/25/18 Pre-Operative Diagnosis: cholelithiasis/gallstone pancreatitis Operation: lap majo Findings: as above Post-Operative Diagnosis: Same as Pre-op Surgeon: Deo Lopez Welding Lead Burner: Ivan Vasquez Anesthesiologist/HOG COOLER: Noam Winn Anesthesia: General Specimens Removed: gallbladder and contents Estimated Blood Loss (mls): 20
--- NOTE | 2018-08-25 10:02 | SURG ---
Surgery Engineering Design Manager Note Engineering Design Manager: Ivan Vasquez PA-C Date of Service: 08/25/18 Diagnosis: cholelithiasis/gallstone pancreatitis Procedure: Laproscopic cholecystectomy I was present for the entirety of the operative procedure. For further detail, please refer to operative report.
[2018-08-25] MEDS: POTASSIUM CHLORIDE ORAL LIQUID 20 MEQ/15 ML PO SCH ×2 (10:06→22:41)
[2018-08-25] MEDS ORDERED: oxyCODONE HCL 5 MG TABLET PO PRN ×2 (10:15→11:04)
[2018-08-25] MEDS ORDERED: ACETAMINOPHEN 325 MG TABLET (FP) PO PRN (10:16)
[2018-08-25] MEDS ORDERED: ONDANSETRON 4 MG/2 ML VIAL ONE (10:19)
[2018-08-25] MEDS ORDERED: ONDANSETRON 4 MG/2 ML VIAL IVPUSH PRN (10:32)
[2018-08-25] MEDS ORDERED: morphine SULFATE 4 MG/ML VIAL IVPUSH PRN (10:32)
[2018-08-25] MEDS: SODIUM CHLORIDE 1,000 ML IV SCH ×2 (10:43→19:00)
--- NOTE | 2018-08-25 13:05 | EKG ---
Test Reason : Blood Pressure : / mmHG Vent. Rate : 101 BPM Atrial Rate : 101 BPM P-R Int : 154 ms QRS Dur : 096 ms QT Int : 358 ms P-R-T Axes : 062 062 045 degrees QTc Int : 464 ms SINUS TACHYCARDIA OTHERWISE NORMAL ECG WHEN COMPARED WITH ECG OF 19-AUG-2018 11:23, SINUS RHYTHM HAS REPLACED JUNCTIONAL RHYTHM ST NO LONGER DEPRESSED IN ANTERIOR LEADS Confirmed by MD PAM, CHRIS ([id number]) on 08/25/2018 1:05:18 PM Referred By: DEYSI BESS Confirmed By:CHRIS OROZCO MD
--- NOTE | 2018-08-25 13:09 | PN ---
Progress Note, Physician History of Present Illness: stable no new issues post op doing well - Current Medication List Current Medications: Active Medications Acetaminophen (Tylenol -) 325 mg PO Q4H PRN PRN Reason: PAIN LEVEL 6-10 Fentanyl (Sublimaze Injection -) 50 mcg IVPUSH [id number] PRN PRN Reason: PAIN-PACU ORDER X 4 DOSES ONLY Levofloxacin (Levaquin 500 Mg Premixed Ivpb -) 500 mg in 100 mls @ 100 mls/hr IVPB DAILY [facility]; Protocol Last Admin: 08/25/18 12:07 Dose: 100 mls/hr Sodium Chloride (Normal Saline -) 1,000 mls @ 150 mls/hr IV ASDIR BENSON Last Admin: 08/25/18 10:43 Dose: 150 mls/hr Metronidazole (Flagyl 500mg Premixed Ivpb -) 500 mg in 100 mls @ 100 mls/hr IVPB Q8H-IV BENSON Last Admin: 08/25/18 13:06 Dose: 100 mls/hr Morphine Sulfate (Morphine Sulfate) 3 mg IVPUSH Q4H PRN PRN Reason: PAIN LEVEL 6-10 Ondansetron HCl (Zofran Injection) 4 mg IVPUSH Q4H PRN PRN Reason: NAUSEA AND/OR VOMITING Last Admin: 08/25/18 10:35 Dose: 4 mg Oxycodone HCl (Roxicodone -) 5 mg PO Q4H PRN PRN Reason: PAIN LEVEL 6-10 Oxycodone HCl (Roxicodone -) 10 mg PO Q4H PRN PRN Reason: PAIN LEVEL 6-10 Potassium Chloride (Potassium Chloride Oral Liquid) 40 meq PO BID [facility] - Objective Vital Signs: Vital Signs Temperature 97.9 F 08/25/18 11:30 Pulse Rate 84 08/25/18 11:30 Respiratory Rate 18 08/25/18 11:30 Blood Pressure 162/85 08/25/18 11:30 O2 Sat by Pulse Oximetry (%) 98 08/25/18 11:15 Constitutional: Yes: No Distress, Calm Eyes: Yes: Conjunctiva Clear Cardiovascular: Yes: Regular Rate and Rhythm Respiratory: Yes: Regular, CTA Bilaterally Gastrointestinal: Yes: Normal Bowel Sounds, Soft Musculoskeletal: Yes: WNL Extremities: Yes: WNL Neurological: Yes: Alert, Oriented Psychiatric: Yes: Alert, Oriented Labs: CBC, BMP 08/24/18 07:35 08/24/18 07:35 Assessment/Plan Problem List - Problems (1) Acute pancreatitis due to calculus of common bile duct Code(s): K85.10 - BILIARY ACUTE PANCREATITIS WITHOUT NECROSIS OR INFECTION (2) Cholelithiasis Code(s): K80.20 - CALCULUS OF GALLBLADDER W/O CHOLECYSTITIS W/O OBSTRUCTION Assessment/Plan 58 y.o. female admitted with epigastric pain, n/v, elevated LFTs/Lipase. Imaging results revealed dilated CBD, cholelithiasis, and pancreatic inflammation Gallstone Pancreatitis Cholecystitis will consider stopping abx continue current mgmt rest as per surgery and other team
--- NOTE | 2018-08-25 16:01 | PN ---
Progress Note, Physician History of Present Illness: s/p surgery...today - Current Medication List Current Medications: Active Medications Acetaminophen (Tylenol -) 325 mg PO Q4H PRN PRN Reason: PAIN LEVEL 6-10 Fentanyl (Sublimaze Injection -) 50 mcg IVPUSH [id number] PRN PRN Reason: PAIN-PACU ORDER X 4 DOSES ONLY Levofloxacin (Levaquin 500 Mg Premixed Ivpb -) 500 mg in 100 mls @ 100 mls/hr IVPB DAILY [facility]; Protocol Last Admin: 08/25/18 12:07 Dose: 100 mls/hr Sodium Chloride (Normal Saline -) 1,000 mls @ 150 mls/hr IV ASDIR BENSON Last Admin: 08/25/18 10:43 Dose: 150 mls/hr Metronidazole (Flagyl 500mg Premixed Ivpb -) 500 mg in 100 mls @ 100 mls/hr IVPB Q8H-IV BENSON Last Admin: 08/25/18 13:06 Dose: 100 mls/hr Morphine Sulfate (Morphine Sulfate) 3 mg IVPUSH Q4H PRN PRN Reason: PAIN LEVEL 6-10 Ondansetron HCl (Zofran Injection) 4 mg IVPUSH Q4H PRN PRN Reason: NAUSEA AND/OR VOMITING Last Admin: 08/25/18 10:35 Dose: 4 mg Oxycodone HCl (Roxicodone -) 5 mg PO Q4H PRN PRN Reason: PAIN LEVEL 6-10 Oxycodone HCl (Roxicodone -) 10 mg PO Q4H PRN PRN Reason: PAIN LEVEL 6-10 Potassium Chloride (Potassium Chloride Oral Liquid) 40 meq PO BID [facility] - Objective Vital Signs: Vital Signs Temperature 98.4 F 08/25/18 12:00 Pulse Rate 95 H 08/25/18 12:00 Respiratory Rate 20 08/25/18 12:00 Blood Pressure 159/81 08/25/18 12:00 O2 Sat by Pulse Oximetry (%) 99 08/25/18 12:00 Constitutional: Yes: No Distress HENT: Yes: Atraumatic Neck: Yes: Supple Cardiovascular: Yes: Regular Rate and Rhythm Respiratory: Yes: CTA Bilaterally Gastrointestinal: Yes: Normal Bowel Sounds, Tenderness (at the surgery site dressing in place) Extremities: Yes: WNL Edema: No Peripheral Pulses WNL: Yes Neurological: Yes: Alert, Oriented Labs: CBC, BMP 08/24/18 07:35 08/24/18 07:35 Problem List - Problems (1) Pancreatitis Assessment/Plan: on clear liquid diet Code(s): K85.90 - ACUTE PANCREATITIS WITHOUT NECROSIS OR INFECTION, UNSP Qualifiers: Chronicity: acute Pancreatitis type: unspecified pancreatitis type Acute pancreatitis complication: unspecified Qualified Code(s): K85.90 - Acute pancreatitis without necrosis or infection, unspecified (2) Acute pancreatitis due to calculus of common bile duct Code(s): K85.10 - BILIARY ACUTE PANCREATITIS WITHOUT NECROSIS OR INFECTION (3) Cholelithiasis Assessment/Plan: s/p gb surgery Code(s): K80.20 - CALCULUS OF GALLBLADDER W/O CHOLECYSTITIS W/O OBSTRUCTION Qualifiers: Cholelithiasis location: gallbladder Cholecystitis presence: with cholecystitis Cholecystitis acuity: acute Biliary obstruction: without biliary obstruction Qualified Code(s): K80.00 - Calculus of gallbladder with acute cholecystitis without obstruction (4) Gallstone pancreatitis Code(s): K85.10 - BILIARY ACUTE PANCREATITIS WITHOUT NECROSIS OR INFECTION (5) Acute cholecystitis due to biliary calculus Code(s): K80.00 - CALCULUS OF GALLBLADDER W ACUTE CHOLECYST W/O OBSTRUCTION
[2018-08-26] MEDS ORDERED: POTASSIUM CHLORIDE TABS 20 MEQ TABLET.ER (FP) PO ONE (00:15)
[2018-08-26 06:49] LABS: BASO % 0.1 % (0-2.0); EOS % 0.2 % (0-4.5); HEMATOCRIT 33.3 % (32.4-45.2); HEMOGLOBIN 11.1 GM/dL (10.7-15.3); LYMPH % 17.7 % (8-40); MCH 29.4 pg (25.7-33.7); MCHC 33.4 g/dl (32.0-36.0); MEAN CELL VOLUME 88.1 fl (80-96); MEAN PLT VOLUME 7.4 fl (7.5-11.1); MONO % 7.4 % (3.8-10.2); NEUT % 74.6 % (42.8-82.8); PLATELET COUNT 298 K/MM3 (134-434); RBC 3.78 M/mm3 (3.60-5.2); RDW 13.3 % (11.6-15.6); WHITE BLOOD COUNT 7.8 K/mm3 (4.0-10.0)
[2018-08-26 07:57] LABS: ALBUMIN 2.4 g/dl (3.4-5.0); ALK PHOS 85 U/L (45-117); AMYLASE 33 U/L (25-115); ANION GAP 9 MMOL/L (8-16); BILIRUBIN,TOTAL 0.2 mg/dL (0.2-1); BLOOD UREA NITROGEN 6 mg/dL (7-18); CALCIUM 8.2 mg/dL (8.5-10.1); CHLORIDE 113 mmol/L (98-107); CO2 20 mmol/L (21-32); CREATININE 0.4 mg/dL (0.55-1.3); GLUCOSE,RANDOM 179 mg/dL (74-106); LIPASE 104 U/L (73-393); POTASSIUM 3.7 mmol/L (3.5-5.1); SGOT/AST 33 U/L (15-37); SGPT/ALT 47 U/L (13-61); SODIUM 142 mmol/L (136-145); TOT PROT 5.7 g/dl (6.4-8.2)
--- NOTE | 2018-08-26 08:02 | PN ---
Progress Note (short form) - Note Progress Note: Surgery POD #1 s/p lap cholecystectomy patient seen and examined at bedside. Patient states pain is controlled. She has been OOB and ambulating without assistance. She is tolerating a clear diet,voiding and passing gas from below but has not had a BM yet. She denies any CP, SOB, Fever, Chills, n/v CBC, BMP 08/26/18 06:00 08/26/18 06:00 Vital Signs Temp 98.2 F 08/26/18 06:44 Pulse 90 08/26/18 06:44 Resp 20 08/26/18 06:44 BP 144/76 08/26/18 06:44 Pulse Ox 99 08/25/18 12:00 Intake & Output 08/25/18 08/25/18 08/26/18 11:59 23:59 11:59 Intake Total 2850 400 Output Total 1220 Balance 1630 400 Intake: IV 2750 Normal Saline - 1,000 ml 1700 @ 150 mls/hr IV ASDIR BENSON Rx#:[id number] IVPB 100 Oral 400 Output: Urine 200 Estimated Blood Loss 20 Other 1000 Other: Voiding Method Toilet Toilet # Unmeasured Voids Void 2 PE: A&Ox3, NAD Unlabored resp on RA Abd: Obese, soft, supple, with mild TTP throughout appropriate to status, incisions, C/D/I with surrounding tissue intact and no evidence of d/c or tracking erythema. B/L LE compartments, soft, supple and non-tender to palpation, +2 DP pulses. Problem List - Problems (1) S/P laparoscopic cholecystectomy Assessment/Plan: POD #1 s/p Lap majo patient doing well 1) Advance diet to regular diet this morning 2) OOB as tolerating 3) Encourage daily IS 4) d/c planning for home evaluation and plan discussed with Dr Lopez. Code(s): Z90.49 - ACQUIRED ABSENCE OF OTHER SPECIFIED PARTS OF DIGESTIVE TRACT
[2018-08-26] MEDS: POTASSIUM CHLORIDE ORAL LIQUID 20 MEQ/15 ML PO SCH (10:51)
[2018-08-26 12:27] VITALS: TEMP 98.5
[2018-08-26 12:52] VITALS: BP 149/78; PULSE 99
--- NOTE | 2018-08-26 13:20 | PN ---
Progress Note, Physician History of Present Illness: stable no new issues post op doing well - Current Medication List Current Medications: Active Medications Acetaminophen (Tylenol -) 325 mg PO Q4H PRN PRN Reason: PAIN LEVEL 6-10 Fentanyl (Sublimaze Injection -) 50 mcg IVPUSH [id number] PRN PRN Reason: PAIN-PACU ORDER X 4 DOSES ONLY Levofloxacin (Levaquin 500 Mg Premixed Ivpb -) 500 mg in 100 mls @ 100 mls/hr IVPB DAILY [facility]; Protocol Last Admin: 08/26/18 09:27 Dose: 100 mls/hr Sodium Chloride (Normal Saline -) 1,000 mls @ 150 mls/hr IV ASDIR [facility] Last Admin: 08/25/18 19:00 Dose: 150 mls/hr Metronidazole (Flagyl 500mg Premixed Ivpb -) 500 mg in 100 mls @ 100 mls/hr IVPB Q8H-IV [facility] Last Admin: 08/26/18 10:49 Dose: 100 mls/hr Morphine Sulfate (Morphine Sulfate) 3 mg IVPUSH Q4H PRN PRN Reason: PAIN LEVEL 6-10 Ondansetron HCl (Zofran Injection) 4 mg IVPUSH Q4H PRN PRN Reason: NAUSEA AND/OR VOMITING Last Admin: 08/25/18 10:35 Dose: 4 mg Oxycodone HCl (Roxicodone -) 5 mg PO Q4H PRN PRN Reason: PAIN LEVEL 6-10 Oxycodone HCl (Roxicodone -) 10 mg PO Q4H PRN PRN Reason: PAIN LEVEL 6-10 Potassium Chloride (Potassium Chloride Oral Liquid) 40 meq PO BID [facility] Last Admin: 08/26/18 10:51 Dose: 40 meq - Objective Vital Signs: Vital Signs Temperature 98.5 F 08/26/18 12:25 Pulse Rate 99 H 08/26/18 12:52 Respiratory Rate 20 08/26/18 12:25 Blood Pressure 149/78 08/26/18 12:52 O2 Sat by Pulse Oximetry (%) 99 08/25/18 12:00 Constitutional: Yes: Calm, Mild Distress Cardiovascular: Yes: Regular Rate and Rhythm Respiratory: Yes: Regular, CTA Bilaterally Gastrointestinal: Yes: Normal Bowel Sounds, Soft Musculoskeletal: Yes: WNL Extremities: Yes: WNL Wound/Incision: Yes: Clean/Dry Neurological: Yes: Alert, Oriented Psychiatric: Yes: Alert, Oriented Labs: CBC, BMP 08/26/18 06:00 08/26/18 06:00 Assessment/Plan Problem List - Problems (1) Acute pancreatitis due to calculus of common bile duct Code(s): K85.10 - BILIARY ACUTE PANCREATITIS WITHOUT NECROSIS OR INFECTION (2) Cholelithiasis Code(s): K80.20 - CALCULUS OF GALLBLADDER W/O CHOLECYSTITIS W/O OBSTRUCTION Assessment/Plan 58 y.o. female admitted with epigastric pain, n/v, elevated LFTs/Lipase. Imaging results revealed dilated CBD, cholelithiasis, and pancreatic inflammation Gallstone Pancreatitis Cholecystitis will stop abx monitor off of abx rest as per surgery and other team
--- NOTE | 2018-08-26 14:47 | OP ---
DATE OF OPERATION: 08/25/2018 PREOPERATIVE DIAGNOSIS: Cholelithiasis and gallstone pancreatitis. POSTOPERATIVE DIAGNOSIS: Cholelithiasis and gallstone pancreatitis. PROCEDURE: Laparoscopic cholecystectomy. SURGEON: Deo Lopez MD INSTRUMENT MAN: Ivan Vasquez PA-C ANESTHESIA: General. OPERATIVE FINDINGS: Cholelithiasis, some adhesions of omentum to the gallbladder, the rest of the findings were unremarkable. DESCRIPTION OF PROCEDURE: The patient was placed on the operating room table in supine position. After the induction of general anesthesia, the patient's abdomen was prepped with ChloraPrep and draped in sterile fashion. Time-out was taken and then pneumoperitoneum established above the umbilicus using a Veress needle. Once 15 mm of intra-abdominal pressure was obtained, a 5-mm port was placed at the umbilicus. Additional lateral 5-mm ports and a subxiphoid 12-mm port were placed and laparoscopy carried out, and the previously noted findings were observed. The gallbladder was placed on cephalad and lateral traction, and dissection was begun at the neck of the gallbladder where the peritoneum was opened medially and laterally using blunt and sharp dissection and electrocautery. Dissection continued in the triangle of Calot where the cystic duct was identified coursing from the neck of the gallbladder distally to the common bile duct. It was dissected proximally and distally for length. Similarly, the artery was similarly identified and dissected. A critical view of safety was taken, and then the cystic duct divided proximally and distally using Endo Sean after it was clipped twice proximally and distally with large hemoclips. The artery was similarly clipped and divided. Hemostasis was checked for and noted to be good and then the gallbladder was removed from the liver bed in a retrograde fashion using electrocautery. Prior to removal from the edge of the liver, hemostasis was again verified and then the gallbladder removed from the edge of the liver, placed in an EndoCatch, and brought out through the subxiphoid port. Pneumoperitoneum was reestablished, hemostasis verified again, and then the 5-mm lateral and subxiphoid ports were removed under laparoscopic vision without evidence of bleeding from the port sites. The umbilical port was removed and the pneumoperitoneum evacuated. All port sites were infiltrated with 0.5% Marcaine and the skin edges closed with 4-0 Biosyn in a subcuticular and continuous fashion. Steri-Strips and Band-Aid dressings were placed and the procedure terminated at this point and the patient aroused from general anesthesia and transferred to the post anesthesia care unit in stable condition awake and alert. ESTIMATED BLOOD LOSS: 20 mL. REPLACEMENTS: Crystalloid. DRAINS: None. SPECIMENS: Gallbladder and contents to pathology. I, Deo Lopez, was physically present in the operating room from the time the patient was placed on the operating room table until she was transported to the post anesthesia care unit in [place]. MD CESAR Davis/[id number] MTDD
--- NOTE | 2018-08-26 14:52 | PN ---
Progress Note, Physician History of Present Illness: Post-prandial loose stools, incisional abd pain improved. Denies chest pain, dyspnea, near or true syncope or palpitations. - Current Medication List Current Medications: Active Medications Acetaminophen (Tylenol -) 325 mg PO Q4H PRN PRN Reason: PAIN LEVEL 6-10 Fentanyl (Sublimaze Injection -) 50 mcg IVPUSH [id number] PRN PRN Reason: PAIN-PACU ORDER X 4 DOSES ONLY Sodium Chloride (Normal Saline -) 1,000 mls @ 150 mls/hr IV ASDIR [facility] Last Admin: 08/25/18 19:00 Dose: 150 mls/hr Morphine Sulfate (Morphine Sulfate) 3 mg IVPUSH Q4H PRN PRN Reason: PAIN LEVEL 6-10 Ondansetron HCl (Zofran Injection) 4 mg IVPUSH Q4H PRN PRN Reason: NAUSEA AND/OR VOMITING Last Admin: 08/25/18 10:35 Dose: 4 mg Oxycodone HCl (Roxicodone -) 5 mg PO Q4H PRN PRN Reason: PAIN LEVEL 6-10 Oxycodone HCl (Roxicodone -) 10 mg PO Q4H PRN PRN Reason: PAIN LEVEL 6-10 Potassium Chloride (Potassium Chloride Oral Liquid) 40 meq PO BID [facility] Last Admin: 08/26/18 10:51 Dose: 40 meq - Objective Vital Signs: Vital Signs Temperature 98.5 F 08/26/18 12:25 Pulse Rate 99 H 08/26/18 12:52 Respiratory Rate 20 08/26/18 12:25 Blood Pressure 149/78 08/26/18 12:52 O2 Sat by Pulse Oximetry (%) 99 08/25/18 12:00 Constitutional: Yes: No Distress, Calm, Thin Neck: Yes: Supple Cardiovascular: Yes: Regular Rate and Rhythm Respiratory: Yes: Regular, CTA Bilaterally Gastrointestinal: Yes: Normal Bowel Sounds, Soft Edema: No Labs: CBC, BMP 08/26/18 06:00 08/26/18 06:00 Problem List - Problems (1) Acute cholecystitis due to biliary calculus Code(s): K80.00 - CALCULUS OF GALLBLADDER W ACUTE CHOLECYST W/O OBSTRUCTION (2) Cholelithiasis Code(s): K80.20 - CALCULUS OF GALLBLADDER W/O CHOLECYSTITIS W/O OBSTRUCTION Qualifiers: Cholelithiasis location: gallbladder Cholecystitis presence: with cholecystitis Cholecystitis acuity: acute Biliary obstruction: without biliary obstruction Qualified Code(s): K80.00 - Calculus of gallbladder with acute cholecystitis without obstruction (3) Gallstone pancreatitis Code(s): K85.10 - BILIARY ACUTE PANCREATITIS WITHOUT NECROSIS OR INFECTION (4) S/P laparoscopic cholecystectomy Code(s): Z90.49 - ACQUIRED ABSENCE OF OTHER SPECIFIED PARTS OF DIGESTIVE TRACT Assessment/Plan 08/24/2018 Echo: Normal LV size with low normal LV fxn, LVEF 55-60%, mild MR, TR 1. POD#1 Post lap cholecystectomy 2. Acute Gallstone Pancreatitis and Cholecystitis w/o choledocholithiasis with LFTs/Lipase trending down P:1. Stable CV-wide post-op 2. Observe off abx, diet as tolerated 3. D/c planning per surgery
--- NOTE | 2018-08-26 15:36 | DS ---
Physical Examination Vital Signs: Vital Signs Temperature 98.5 F 08/26/18 12:25 Pulse Rate 99 H 08/26/18 12:52 Respiratory Rate 20 08/26/18 12:25 Blood Pressure 149/78 08/26/18 12:52 O2 Sat by Pulse Oximetry (%) 99 08/25/18 12:00 Constitutional: Yes: No Distress HENT: Yes: Atraumatic Neck: Yes: Supple Cardiovascular: Yes: Regular Rate and Rhythm Respiratory: Yes: CTA Bilaterally Gastrointestinal: Yes: Normal Bowel Sounds, Tenderness (at the surgery site) Extremities: Yes: WNL Edema: No Peripheral Pulses WNL: Yes Neurological: Yes: Alert, Oriented Labs: CBC, BMP 08/26/18 06:00 08/26/18 06:00 Discharge Summary Reason For Visit: PANCREATITIS/MULTIPLE GALLSTONES Current Active Problems Acute cholecystitis due to biliary calculus (Acute) Acute pancreatitis due to calculus of common bile duct (Acute) Cholelithiasis (Acute) Gallstone pancreatitis (Acute) Pancreatitis (Acute) Pre-operative cardiovascular examination (Acute) S/P laparoscopic cholecystectomy (Acute) Condition: Guarded - Instructions Diet, Activity, Other Instructions: Dr. Lopez Discharge Instructions Dear MARY FINK, Post Operative Instructions Physical activity Resume your normal everyday activity as tolerated no heavy lifting or exercise until seen by your surgeon. You may walk unlimited amounts of and climb stairs. You may resume driving the car when you feel safe and comfortable behind the wheel. Wound care If you have a bandage, leave it on, and keep dry for 48 - 72 hours. After that time discard the outer bandage. If there are tapes on the skin under the outer bandage, leave them in place. They will peel off in the next 7 to 10 days. Do Not peel them off. You may shower 2 days after surgery. If there are tapes present on the skin, they can get wet. Diet There are no dietary restrictions. Eat healthy, high-fiber foods. Drink 6 to 8 glasses of liquid each day. This will assist in keeping your bowels are regular. Pain management You may take Tylenol or acetaminophen or Ibuprofen (for example, Motrin, Advil etc.) Any pain prescription medication ordered should be taken as prescribed for moderate to severe pain. Call Dr. Lopez for any of the following: Severe pain not relieved by medication Fever of 101 or higher Excessive bleeding or drainage on dressing Inability to urinate Call the office at [phone] for a post operative appointment in 7 - 10 days. Referrals: Royer Fields MD [Staff Physician] - - Home Medications Comprehensive Discharge Medication List: Ambulatory Orders NK [No Known Home Medication] 08/19/18 dc home fu pmd 2-3 days fu surgery as per instructions by surgeon
--- NOTE | 2018-08-26 16:19 | PATH ---
Surgical Pathology Report Patient Name: MARY FINK Med. Rec. #: [id number] /Age/Gender: 1960 (Age: 58) / F Account: [id number] Location: [address] [place] [address] Taken: 08/25/2018 Received: 08/25/2018 Reported: 08/26/2018 Physicians: MD Zoila Mullins M.D. Specimen(s) Received GALLBLADDER Clinical History Pancreatitis, multiple gallstones Final Diagnosis GALLBLADDER, CHOLECYSTECTOMY: CHRONIC CHOLECYSTITIS AND CHOLELITHIASIS. Electronically Signed Jessa Jones M.D. Gross Description Received in formalin, labeled "gallbladder," is a 6.2 x 2.4 x 2.0 cm. gallbladder with a 0.2 cm. in length portion of cystic duct attached. The outer surface is aldrich-pink and varies from smooth to shaggy. The lumen contains green-brown, sludgelike bile as well as a 2.0 cm in greatest dimension aldrich, ovoid cholelith. The mucosa is aldrich and velvety. The wall of the gallbladder ranges from 0.1-0.3 cm. in thickness. [employer] sections are submitted in one cassette. /08/25/2018 saudi08/25/2018
== END 2018-08-26 18:08 | disposition home or self-care (01) | DRG 418 ==
LOC: JER 10:41 → JERBED 18:25 → J4W 08-20 14:28 → J6S 08-22 10:16
PROVIDERS: ADMIT Internal Medicine; ATTEND Internal Medicine
PROC: 0FT44ZZ Resection of Gallbladder, Percutaneous Endoscopic Approach (ICD-10-PCS; principal; 2018-08-25 08:00)
DX: K85.10 Biliary acute pancreatitis without necrosis or infection (principal); K80.10 Calculus of gallbladder with chronic cholecystitis without obstruction; I10 Essential (primary) hypertension
CPT/HCPCS: 36415; 71045-TC-FY; 74177-TC; 74181-TC; 76705-TC; 80048; 80053; 80076; 81003; 82009; 82150; 82550; 82962; 83605; 83615; 83690; 84478; 84484; 85025; 86140; 87177; 87209; 87324; 87449; 88304-TC; 93005; 93010; 93306-TC; 93312; 93325; 94760; 99285-25; J7030